=== PATIENT | female | born 1995 | race Caucasian/White ===

== ENCOUNTER 2017-09-29 18:09 | Emergency (ER) | payer SELFPAY ==
[~2017-09-29] VITALS: Ht 154.9 cm; Wt 74.8 kg
[~2017-09-29 18:09] MED LIST: BUPR-126 PO; CHOL10005 PO; FLUO-202 PO; HYDR25CA13 PO; HYDR50CA47 PO; MULT-1379 PO; OMEG-11 PO; ONDA4TAB97 PO; TRAZ-156 PO; TRAZ150T8 PO; [UNRECOGNIZED DRUG - CODE] TP
--- NOTE | 2017-09-29 18:19 | ER Report ---
History and Physical Time Seen By MD: 18:19 Hx. of Stated Complaint: PT REPORTS L ANKLE PAIN SINCE SHE WAS [age] HPI/ROS CHIEF COMPLAINT: Left ankle pain HISTORY OF PRESENT ILLNESS: 22-year-old female patient presents to emergency room with complaint of left ankle pain. Patient states she's been having pain with her ankle for the past 10-11 years. She states that she injured it when she was 11 and didn't think anything of it. She states that she sprained her ankles frequently since then. She states she is seen primarily [facility] and they put her in physical therapy. She states that that seemed to help for a little bit but has not resolved. She denies having any numbness or tingling to her toes. She states that she rolled her ankle twice today. She states that when she does rolled her ankle that rolls inward. She states she has pain along the medial aspect of the left ankle. REVIEW OF SYSTEMS: Respiratory: No cough, no dyspnea. Cardiovascular: No chest pain, no palpitations. Gastrointestinal: No vomiting, no abdominal pain. Musculoskeletal: As noted above Allergies: Coded Allergies: nickel (Verified Allergy, Mild, RASH, 09/29/17) Uncoded Allergies: seafood (Allergy, Mild, AIRWAY OBSTRUCTION, 02/12/17) Home Meds Reported Medications Hydroxyzine Pamoate (HYDROXYZINE PAMOATE) 25 Mg Capsule, 25 MG PO BID Y for ANXIETY, CAPSULE TAKE ONE TABLET (25 MG) UP TO TWICE A DAY NEEDED FOR ANXIETY 08/07/17 Multivits,Th W-Fe,Other Min (THERA-M) 1 Each Tablet, 1 EACH PO QDAY 08/07/17 Fluoxetine Hcl (PROZAC) 20 Mg Capsule, 20 MG PO QAM, CAPSULE 08/07/17 Trazodone Hcl (TRAZODONE HCL) 50 Mg Tablet, 25-50 MG PO QHS Y for INSOMNIA TAKE ONE HALF TO ONE TABLET (25 - 50 MG) ABOUT AN HOUR BEFORE YOU PLAN TO GO TO SLEEP NEEDED FOR INSOMNIA. 02/21/17 Bupropion Hcl (WELLBUTRIN SR) 150 Mg Tablet.er, 150 MG PO QAM, TAB 02/12/17 Past Medical/Surgical History Patient has a past medical history of migraines, social drugs, depression, anxiety, suicide attempt. Patient has surgical history of was some teeth removal. Reviewed Nurses Notes: Yes Hx Smoking: No Smoking Status: Never Smoker Exposure to Second Hand Smoke?: No Hx Substance Use Disorder: Yes (Tride social drugs once ) Hx Alcohol Use: No Constitutional Vital Sign - Last 24 Hours 09/29/17 09/29/17 18:14 19:26 Temp 97.8 Pulse 113 85 Resp 16 16 B/P (MAP) 128/88 128/88 (101) Pulse Ox 96 95 O2 Delivery Room Air Room Air Physical Exam General Appearance: The patient is alert, has no immediate need for airway protection and no current signs of toxicity. ENT: Tympanic membranes are pearly-hancock, auditory canals are patent, mucus mucous membranes are moist. Respiratory: Chest is non tender, lungs are clear to auscultation. Cardiac: regular rate and rhythm Gastrointestinal: Abdomen is soft and non tender, no masses, bowel sounds normal. Musculoskeletal: Neck: Neck is supple and non tender. Extremities have full range of motion and are non tender. Patient has tenderness to the medial aspect of the left ankle, patient has good flexion and extension. Skin: No rashes or lesions. DIFFERENTIAL DIAGNOSIS: After history and physical exam differential diagnosis was considered for left ankle sprain, fracture, strain. Medical Decision Making EKG/Imaging Imaging INDICATION: left ankle pain. DATE: 09/29/2017 6:57 PM. TECHNIQUE: ANKLE 3 VIEW MIN LEFT COMPARISON: None FINDINGS: The ossicle at the dorsal margin of the navicular appears well corticated but may reflect an old injury. Alignment is normal mortise. Mild soft tissue swelling over the lateral malleolus. IMPRESSION: No evidence of acute fracture or dislocation Report Dictated By: Amy Rhodes MD at 09/29/2017 6:57 PM Report E-Signed By: Amy Rhodes MD at 09/29/2017 7:00 PM ED Course/Re-evaluation ED Course Patient was admitted to exam room, history and physical were obtained. Differential diagnoses were considered. On examination there is no obvious swelling or bruising to the ankle. Patient had some tenderness to the medial aspect of the ankle. There was done which was negative. I discussed findings with patient. Patient was very concerned about being placed in a brace was not going to be supportive enough. We will go ahead and place her in a walking boot. She states she has a appointment to follow-up with orthopedics, Dr. Gayle in [place], on September. I will have her wear that until she sees Dr. Gayle. I informed her that she needs to wear that whenever she is up moving around. She may take it off when she is laying down and otherwise needs to have it on. She is to ice her ankle. She is to take Tylenol or ibuprofen as if her pain. Patient verbalized understanding and agreement with plan. Decision to Disposition Date: Sep 29, 2017 Decision to Disposition Time: 19:14 Depart Departure Latest Vital Signs Vital Signs Date Time Temp Pulse Resp B/P (MAP) Pulse Ox O2 Delivery O2 Flow Rate FiO2 09/29/17 19:26 85 16 128/88 (101) 95 Room Air 09/29/17 18:14 97.8 Impression: Primary Impression: SPRAIN OF UNSPECIFIED LIGAMENT OF LEFT ANKLE, INIT ENCNTR Condition: Improved Disposition: HOME OR SELF-CARE Patient Instructions: Ankle Sprain (ED) Additional Instructions: Wear the boot whenever you are up moving. Ice the ankle 2-3 times a day for 10-15 minutes. Get plenty of rest. Take Tylenol or Ibuprofen as needed for pain. Follow up with Dr. Gayle in [place] as we discussed to get further evaluation and decide if surgery is needed. Return to the ER if condition worsens. LAMONT DEL ROSARIO Sep 29, 2017 18:19
--- NOTE | 2017-09-29 19:04 | RADIOLOGY IMAGING REPORT ---
FACILITY: [facility] PATIENT NAME: Letty Valdez : 1995 MR: [id number] V: [id number] EXAM DATE: ORDERING PHYSICIAN: LAMONT DEL ROSARIO TECHNOLOGIST: Location: [facility] [place] Patient: Letty Valdez : 1995 Visit/Account:[id number] Date of Sevice: 09/29/2017 INDICATION: left ankle pain. DATE: 09/29/2017 6:57 PM. TECHNIQUE: ANKLE 3 VIEW MIN LEFT COMPARISON: None FINDINGS: The ossicle at the dorsal margin of the navicular appears well corticated but may reflect a n old injury. Alignment is normal mortise. Mild soft tissue swelling over the lateral malleolus. IMPRESSION: No evidence of acute fracture or dislocation Report Dictated By: Amy Rhodes MD at 09/29/2017 6:57 PM Report E-Signed By: Amy Rhodes MD at 09/29/2017 7:00 PM WSN:[id number]
[2017-09-29 19:26] VITALS: BP 128/88
== END 2017-09-29 19:27 | disposition home or self-care (01) ==
LOC: ER 18:35
DX: S93.402A Sprain of unspecified ligament of left ankle, initial encounter (principal)
CPT/HCPCS: 99284

== ENCOUNTER 2018-03-05 18:54 | Emergency (ER) | payer SELFPAY ==
[~2018-03-05 18:54] MED LIST changes: -TRAZ-156 PO; +TRAZ50TA34 PO
--- NOTE | 2018-03-05 18:57 | ER Report ---
History and Physical Time Seen By MD: 18:56 HPI/ROS CHIEF COMPLAINT: Diffuse abdominal pain, bilateral flank pain for 4 days HISTORY OF PRESENT ILLNESS: Patient is a 22-year-old female here with complaints of the above as well as nausea, vomiting. Pain is located in all quadrants as well as bilateral back flanks. Patient has been tolerating food passing bowel movements however she complains of some dysuria/burning with urination. Patient is afebrile, hemodynamically stable at time of evaluation. She does complain of mild headache however denies chest pain, shortness of breath, hematuria, melena. Patient denies prior history of abdominal procedures. Patient notes that she could be but is uncertain. Denies prior history of nephrolithiasis. She also describes a transient visual disturbance which as since passed which involved the left eye and a seeming hemianopsia from what she was able to describe. No symptoms were present at time of evaluation. I advised the patient to also follow up with neurology OP for further evaluation of a possible underlying neurologic condition. REVIEW OF SYSTEMS: Constitutional: No fever, no chills. Eyes: No discharge ENT: No sore throat. Cardiovascular: No chest pain, no palpitations. Respiratory: No cough, no shortness of breath. Gastrointestinal: + Diffuse abdominal pain, + nausea with vomiting. Genitourinary: No hematuria, + dysuria Musculoskeletal: + b/l back pain. Skin: No rashes. Neurological: + mild headache. Allergies: Coded Allergies: nickel (Verified Allergy, Mild, RASH, 09/29/17) Uncoded Allergies: seafood (Allergy, Mild, AIRWAY OBSTRUCTION, 02/12/17) Home Meds Active Scripts Ondansetron (ZOFRAN ODT) 4 Mg Tab.rapdis, 4 MG PO Q6H Y for NAUSEA/VOMITING, # 20 TAB.DEREJE 0 Refills Prov:LEOPOLDO BENJAMIN DO 03/05/18 Tramadol Hcl (TRAMADOL HCL) 50 Mg Tablet, 50 MG PO Q6H Y for PAIN, #12 TAB 0 Refills Prov:LEOPOLDO BENJAMIN DO 03/05/18 Nitrofurantoin Macrocrystal (NITROFURANTOIN) 100 Mg Capsule, 100 MG PO BID for 5 Days, #10 CAPSULE Prov:LEOPOLDO BENJAMIN DO 03/05/18 Reported Medications Bupropion Hcl (WELLBUTRIN SR) 150 Mg Tablet.er, 150 MG PO BID, TAB 03/05/18 Hydroxyzine Pamoate (HYDROXYZINE PAMOATE) 25 Mg Capsule, 25 MG PO BID Y for ANXIETY, CAPSULE TAKE ONE TABLET (25 MG) UP TO TWICE A DAY NEEDED FOR ANXIETY 08/07/17 Multivits,Th W-Fe,Other Min (THERA-M) 1 Each Tablet, 1 EACH PO QDAY 08/07/17 Trazodone Hcl (TRAZODONE HCL) 50 Mg Tablet, 25-50 MG PO QHS Y for INSOMNIA TAKE ONE HALF TO ONE TABLET (25 - 50 MG) ABOUT AN HOUR BEFORE YOU PLAN TO GO TO SLEEP NEEDED FOR INSOMNIA. 02/21/17 Discontinued Reported Medications Fluoxetine Hcl (PROZAC) 20 Mg Capsule, 20 MG PO QAM, CAPSULE 08/07/17 Bupropion Hcl (WELLBUTRIN SR) 150 Mg Tablet.er, 150 MG PO QAM, TAB 02/12/17 Hx Smoking: No Smoking Status: Never Smoker Exposure to Second Hand Smoke?: No Hx Substance Use Disorder: Yes (Tride social drugs once ) Hx Alcohol Use: No Constitutional Vital Sign - Last 24 Hours 03/05/18 03/05/18 03/05/18 03/05/18 18:59 19:01 19:09 19:24 Temp 99.1 Pulse 126 105 103 Resp 18 B/P (MAP) 130/95 (107) Pulse Ox 95 97 95 O2 Delivery Room Air 03/05/18 03/05/18 03/05/18 03/05/18 19:30 19:39 20:00 20:04 B/P (MAP) 122/85 (97) 120/81 (94) Pulse Ox 90 92 Physical Exam General Appearance: The patient is alert, has no immediate need for airway protection and no signs of toxicity. + mild distress secondary to pain Eyes: Pupils equal and round no pallor or injection. ENT, Mouth: Mucous membranes are moist. Respiratory: There are no retractions, lungs are clear to auscultation. Cardiovascular: Regular rate and rhythm. Gastrointestinal: Abdomen is soft and + diffusely tender w/ b/l flank pain, no masses, bowel sounds normal. Neurological: No focal deficits Skin: Warm and dry, no rashes. Musculoskeletal: Neck is supple non tender. Extremities are nontender, nonswollen and have full range of motion. DIFFERENTIAL DIAGNOSIS: After history and physical exam differential diagnosis was considered for abdominal pain including but not limited to appendicitis, cholecystitis, gastritis and urinary tract infection. Medical Decision Making Data Points Result Diagram: 03/05/18193703/05/181937 Laboratory Hematology Test 03/05/18 18:59 03/05/18 19:38 Urine Color Yellow Urine Clarity Cloudy Urine pH 5.0 pH (4.8-9.5) Urine Specific [place] 1.021 Urine Protein Negative mg/dL (NEGATIVE) Urine Glucose (UA) Negative mg/dL (NEGATIVE) Urine Ketones Negative mg/dL (NEGATIVE) Urine Blood Negative (NEGATIVE) Urine Nitrite Negative (NEGATIVE) Urine Bilirubin Negative (NEGATIVE) Urine Urobilinogen 2.0 mg/dL (0.2-1.9) Urine Leukocyte Esterase Small (NEGATIVE) Urine RBC 1 /HPF (0-2/HPF) Urine WBC 11 /HPF (0-5/HPF) Urine Squamous Epithelial Cells Many /LPF (</=FEW) Urine Bacteria Few /HPF (NONE-FEW) Urine Mucus Few /HPF (NONE-FEW) Urine HCG, Qualitative Negative (NEGATIVE) Red Blood Count 4.53 M/uL (4.17-5.56) Mean Corpuscular Volume 90.7 fL (80.0-96.0) Mean Corpuscular Hemoglobin 31.6 pg (26.0-33.0) Mean Corpuscular Hemoglobin Concent 34.8 g/dL (32.0-36.0) Red Cell Distribution Width 14.9 % (11.5-14.5) Mean Platelet Volume 8.4 fL (7.2-11.1) Neutrophils (%) (Auto) 59.4 % (39.4-72.5) Lymphocytes (%) (Auto) 31.1 % (17.6-49.6) Monocytes (%) (Auto) 8.5 % (4.1-12.4) Eosinophils (%) (Auto) 0.3 % (0.4-6.7) Basophils (%) (Auto) 0.7 % (0.3-1.4) Nucleated RBC Relative Count (auto) 0.0 /100WBC Neutrophils # (Auto) 4.8 K/uL (2.0-7.4) Lymphocytes # (Auto) 2.5 K/uL (1.3-3.6) Monocytes # (Auto) 0.7 K/uL (0.3-1.0) Eosinophils # (Auto) 0.0 K/uL (0.0-0.5) Basophils # (Auto) 0.1 K/uL (0.0-0.1) Nucleated RBC Absolute Count (auto) 0.00 K/uL Sodium Level 141 mmol/L (137-145) Potassium Level 3.7 mmol/L (3.5-5.0) Chloride Level 105 mmol/L (98-107) Carbon Dioxide Level 25 mmol/L (22-31) Blood Urea Nitrogen 13 mg/dl (7-18) Creatinine 0.70 mg/dl (0.52-1.04) Glomerular Filtration Rate Calc > 60.0 Random Glucose 108 mg/dl (75-110) Lactate 1.1 mmol/L (0.7-2.1) Calcium Level 8.9 mg/dl (8.4-10.2) Total Bilirubin 0.4 mg/dl (0.2-1.3) Aspartate Amino Transf (AST/SGOT) 17 U/L (0-35) Alanine Aminotransferase (ALT/SGPT) 20 U/L (0-56) Alkaline Phosphatase 117 U/L (0-126) Total Protein 6.6 g/dl (6.3-8.2) Albumin 3.8 g/dl (3.5-5.0) Lipase 67 U/L (23-300) Chemistry Test 03/05/18 18:59 03/05/18 19:38 Urine Color Yellow Urine Clarity Cloudy Urine pH 5.0 pH (4.8-9.5) Urine Specific [place] 1.021 Urine Protein Negative mg/dL (NEGATIVE) Urine Glucose (UA) Negative mg/dL (NEGATIVE) Urine Ketones Negative mg/dL (NEGATIVE) Urine Blood Negative (NEGATIVE) Urine Nitrite Negative (NEGATIVE) Urine Bilirubin Negative (NEGATIVE) Urine Urobilinogen 2.0 mg/dL (0.2-1.9) Urine Leukocyte Esterase Small (NEGATIVE) Urine RBC 1 /HPF (0-2/HPF) Urine WBC 11 /HPF (0-5/HPF) Urine Squamous Epithelial Cells Many /LPF (</=FEW) Urine Bacteria Few /HPF (NONE-FEW) Urine Mucus Few /HPF (NONE-FEW) Urine HCG, Qualitative Negative (NEGATIVE) White Blood Count 8.0 k/uL (4.5-11.0) Red Blood Count 4.53 M/uL (4.17-5.56) Hemoglobin 14.3 g/dL (12.0-16.0) Hematocrit 41.1 % (34.0-47.0) Mean Corpuscular Volume 90.7 fL (80.0-96.0) Mean Corpuscular Hemoglobin 31.6 pg (26.0-33.0) Mean Corpuscular Hemoglobin Concent 34.8 g/dL (32.0-36.0) Red Cell Distribution Width 14.9 % (11.5-14.5) Platelet Count 286 K/uL (150-450) Mean Platelet Volume 8.4 fL (7.2-11.1) Neutrophils (%) (Auto) 59.4 % (39.4-72.5) Lymphocytes (%) (Auto) 31.1 % (17.6-49.6) Monocytes (%) (Auto) 8.5 % (4.1-12.4) Eosinophils (%) (Auto) 0.3 % (0.4-6.7) Basophils (%) (Auto) 0.7 % (0.3-1.4) Nucleated RBC Relative Count (auto) 0.0 /100WBC Neutrophils # (Auto) 4.8 K/uL (2.0-7.4) Lymphocytes # (Auto) 2.5 K/uL (1.3-3.6) Monocytes # (Auto) 0.7 K/uL (0.3-1.0) Eosinophils # (Auto) 0.0 K/uL (0.0-0.5) Basophils # (Auto) 0.1 K/uL (0.0-0.1) Nucleated RBC Absolute Count (auto) 0.00 K/uL Glomerular Filtration Rate Calc > 60.0 Lactate 1.1 mmol/L (0.7-2.1) Calcium Level 8.9 mg/dl (8.4-10.2) Total Bilirubin 0.4 mg/dl (0.2-1.3) Aspartate Amino Transf (AST/SGOT) 17 U/L (0-35) Alanine Aminotransferase (ALT/SGPT) 20 U/L (0-56) Alkaline Phosphatase 117 U/L (0-126) Total Protein 6.6 g/dl (6.3-8.2) Albumin 3.8 g/dl (3.5-5.0) Lipase 67 U/L (23-300) Urinalysis Test 03/05/18 18:59 Urine Color Yellow Urine Clarity Cloudy Urine pH 5.0 pH (4.8-9.5) Urine Specific [place] 1.021 Urine Protein Negative mg/dL (NEGATIVE) Urine Glucose (UA) Negative mg/dL (NEGATIVE) Urine Ketones Negative mg/dL (NEGATIVE) Urine Blood Negative (NEGATIVE) Urine Nitrite Negative (NEGATIVE) Urine Bilirubin Negative (NEGATIVE) Urine Urobilinogen 2.0 mg/dL (0.2-1.9) Urine Leukocyte Esterase Small (NEGATIVE) Urine RBC 1 /HPF (0-2/HPF) Urine WBC 11 /HPF (0-5/HPF) Urine Squamous Epithelial Cells Many /LPF (</=FEW) Urine Bacteria Few /HPF (NONE-FEW) Urine Mucus Few /HPF (NONE-FEW) Urine HCG, Qualitative Negative (NEGATIVE) EKG/Imaging Imaging 2 VIEWS CHEST INDICATION: Upper abdominal pain. Back pain. COMPARISON: None available FINDINGS: Cardiomediastinal silhouette and pulmonary vessels within normal limits. There is no focal infiltrate or lobar consolidation. There is no pneumothorax or pleural effusion. No nodule. Upper abdomen is unremarkable. No acute bony abnormality. IMPRESSION: 1. No acute cardiopulmonary process. EXAMINATION: CT abdomen with IV contrast CT pelvis with IV contrast HISTORY: Diffuse abdominal pain, nausea/vomiting. COMPARISON: None. TECHNIQUE: Axial images were taken through the abdomen and pelvis with intravenous contrast. Sagittal and coronal reformatted images are also submitted. CONTRAST: 75 mL of IV Isovue-370 One of the following dose optimization techniques was utilized in the performance of this exam: Automated exposure control; adjustment of the mA and/ or kV according to the patient's size; or use of an iterative reconstruction technique. Specific details can be referenced in the facility's radiology CT exam operational policy. FINDINGS: Mild respiratory motion artifact. Liver/biliary: Negative. Pancreas: Negative. Spleen: Negative. Adrenal glands: Negative. Kidneys: Negative. Pelvic structures: Involuting follicle in the right ovary. Bowel: Bowel is normal caliber without obvious focal wall thickening. The appendix is normal. Peritoneum/retroperitoneum/mesenteries: Small volume of free fluid in the pelvis and right lower quadrant of the abdomen. No intraperitoneal free air. Vessels: Negative. Musculoskeletal/body wall: Negative. Lymph node assessment: Negative. Lower chest: Negative. IMPRESSION: Images are mildly degraded by motion artifact. Involuting follicle in the right ovary and small volume of free fluid in the pelvis and right lower quadrant of the abdomen. ED Course/Re-evaluation ED Course Patient is a 22-year-old female here with complaints of diffuse abdominal pain, bilateral flank pain for the past 4 days which is been intermittent, cramping, sore feeling. She also complains of mild burning with urination. Patient denies prior history of abdominal surgeries or nephrolithiasis. She now has nausea and vomiting which prompted evaluation. On examination, the pain and discomfort seems to be in all abdominal quadrants as well as bilateral flanks. CT examination of the abdomen and pelvis was ordered along with chest x-ray due to symptoms. Urine is negative. Chest x ray showed no acute findings. CTAP showed no acute intra abdominal findings. B HCG negative. UA showed small esterase. Due to symptoms of burning with urination, patient was prescribed antibiotics. She was also given scripts for zofran, tramadol and advised to follow up with her PCP in the next several days. She also describes a transient visual disturbance which as since passed which involved the left eye and a seeming hemianopsia from what she was able to describe. No symptoms were present at time of evaluation. I advised the patient to also follow up with neurology OP for further evaluation of a possible underlying neurologic condition such as MS. Ceftriaxone was given for antimicrobial coverage along with macrobid x 5 days, tramadol and zofran. Patient was well appearing at time of discharge. Decision to Disposition Date: Mar 05, 2018 Decision to Disposition Time: 20:44 Depart Departure Latest Vital Signs Vital Signs Date Time Temp Pulse Resp B/P (MAP) Pulse Ox O2 Delivery O2 Flow Rate FiO2 03/05/18 20:04 92 03/05/18 20:00 120/81 (94) 03/05/18 19:24 103 03/05/18 18:59 99.1 18 Room Air Impression: Primary Impression: Abdominal pain Additional Impressions: Nausea & vomiting UTI (urinary tract infection) Condition: Improved Disposition: HOME OR SELF-CARE New Scripts Ondansetron (ZOFRAN ODT) 4 Mg Tab.rapdis 4 MG PO Q6H Y for NAUSEA/VOMITING, #20 TAB.DEREJE 0 Refills Prov: LEOPOLDO BENJAMIN DO 03/05/18 Tramadol Hcl (TRAMADOL HCL) 50 Mg Tablet 50 MG PO Q6H Y for PAIN, #12 TAB 0 Refills Prov: LEOPOLDO BENJAMIN DO 03/05/18 Nitrofurantoin Macrocrystal (NITROFURANTOIN) 100 Mg Capsule 100 MG PO BID for 5 Days, #10 CAPSULE Prov: LEOPOLDO BENJAMIN DO 03/05/18 Patient Instructions: Abdominal Pain (ED), Urinary Tract Infection in Women (ED ) Additional Instructions: Please take one tablet of Macrobid twice daily for coverage of urinary tract infection. You may take 1 tablet of tramadol every 6-8 hours as needed for pain. You may take 1 tablet of Zofran every 6 hours as needed for nausea. Please follow up with your family doctor in the next several days. Please follow up with neurology for further evaluation of your vision disturbance. Please return promptly if you develop worsening pain, fevers, chills, shortness of breath. Problem Qualifiers LEOPOLDO BENJAMIN DO Mar 05, 2018 18:57
[2018-03-05] MEDS ORDERED: ONDANSETRON 4 MG/2 ML VIAL IVP ONE (19:15)
[2018-03-05] MEDS ORDERED: KETOROLAC 30 MG/ML VIAL IVP ONE (19:15)
[2018-03-05] MEDS ORDERED: NS(*) 0.9% 1000 ML BAG 1,000 ML IV ONE (19:15)
[2018-03-05] MEDS ORDERED: IOPAMIDOL 76% 100 ML INFUS BTL 100 ML ONE (19:30)
[2018-03-05 19:54] LABS: PLATELET COUNT, AUTOMATED 286 K/uL (150-450)
--- NOTE | 2018-03-05 19:57 | RADIOLOGY IMAGING REPORT ---
FACILITY: [facility] [place] PATIENT NAME: Letty Valdez : 1995 MR: [id number] V: [id number] EXAM DATE: ORDERING PHYSICIAN: LEOPOLDO BENJAMIN TECHNOLOGIST: Location: [facility] Patient: Letty Valdez : 1995 Visit/Account:[id number] Date of Sevice: 03/05/2018 2 VIEWS CHEST INDICATION: Upper abdominal pain. Back pain. COMPARISON: None available FINDINGS: Cardiomediastinal silhouette and pulmonary vessels within normal limits. There is no focal infiltrate or lobar consolidation. There is no pneumothorax or pleural effusion. No nodule. Upper abdomen is unremarkable. No acute bony abnormality. IMPRESSION: 1. No acute cardiopulmonary process. Report Dictated By: Patrick Gallegos at 03/05/2018 7:53 PM Report E-Signed By: Patrick Gallegos at 03/05/2018 7:54 PM WSN:[id number]
[2018-03-05 20:00] VITALS: BP 120/81
[2018-03-05] MEDS ORDERED: BUPR-126 PO (20:07)
--- NOTE | 2018-03-05 20:32 | RADIOLOGY IMAGING REPORT ---
FACILITY: PATIENT NAME: Letty Valdez : 1995 MR: [id number] V: [id number] EXAM DATE: ORDERING PHYSICIAN: LEOPOLDO BENJAMIN TECHNOLOGIST: Location: [facility] [place] Patient: Letty Valdez : 1995 Visit/Account:[id number] Date of Sevice: 03/05/2018 EXAMINATION: CT abdomen with IV contrast CT pelvis with IV contrast HISTORY: Diffuse abdominal pain, nausea/vomiting. COMPARISON: None. TECHNIQUE: Axial images were taken through the abdomen and pelvis with intravenous contrast. Sagitt al and coronal reformatted images are also submitted. CONTRAST: 75 mL of IV Isovue-370 One of the following dose optimization techniques was utilized in the performance of this exam: Autom ated exposure control; adjustment of the mA and/or kV according to the patient's size; or use of an i terative reconstruction technique. Specific details can be referenced in the facility's radiology C T exam operational policy. FINDINGS: Mild respiratory motion artifact. Liver/biliary: Negative. Pancreas: Negative. Spleen: Negative. Adrenal glands: Negative. Kidneys: Negative. Pelvic structures: Involuting follicle in the right ovary. Bowel: Bowel is normal caliber without obvious focal wall thickening. The appendix is normal. Peritoneum/retroperitoneum/mesenteries: Small volume of free fluid in the pelvis and right lower quad rant of the abdomen. No intraperitoneal free air. Vessels: Negative. Musculoskeletal/body wall: Negative. Lymph node assessment: Negative. Lower chest: Negative. IMPRESSION: Images are mildly degraded by motion artifact. Involuting follicle in the right ovary and small volume of free fluid in the pelvis and right lower q uadrant of the abdomen. Report Dictated By: Michael Romo MD at 03/05/2018 8:17 PM Report E-Signed By: Michael Romo MD at 03/05/2018 8:28 PM WSN:[id number]
[2018-03-05] MEDS ORDERED: NITR-1 PO (20:47)
[2018-03-05] MEDS ORDERED: TRAM-420 PO (20:47)
[2018-03-05] MEDS ORDERED: ONDA4TAB PO (20:47)
[2018-03-05] MEDS ORDERED: cefTRIAXone 1 GM VIAL IM ONE (20:50)
[2018-03-05] MEDS ORDERED: LIDOCAINE 1% MDV 200 MG/20 ML INJ ONE (20:50)
[2018-03-05] MEDS ORDERED: cefTRIAXone 1 GM VIAL IVP ONE (20:55)
== END 2018-03-05 21:11 | disposition home or self-care (01) ==
LOC: ER 19:15
DX: N39.0 Urinary tract infection, site not specified (principal); R11.2 Nausea with vomiting, unspecified; R10.9 Unspecified abdominal pain
CPT/HCPCS: 71046; 74177; 81001; 81025; 83605; 83690; 85025; 87088; 96361; 96374; 96375; 99284; J0696; J1885; J2405; J7030; Q9967; 82040; 82247; 82310; 82374; 82435; 82565; 82947; 84075; 84132; 84155; 84295; 84450; 84460; 84520; 99283

== ENCOUNTER 2018-03-29 03:31 | Emergency (ER) | payer SELFPAY ==
[~2018-03-29 03:31] MED LIST changes: +NITR-1 PO; +ONDA4TAB PO; +TRAM-420 PO
--- NOTE | 2018-03-29 03:55 | ER Report ---
History and Physical Time Seen By MD: 03:54 (BARAK DIAZ MD) HPI/ROS CHIEF COMPLAINT: Left arm numbness, mouth and numbness HISTORY OF PRESENT ILLNESS: Patient is a 22-year-old female who had developed onset of numbness and tingling to the left side of her face and left arm associated with visual changes. She states that when she looks at a person's face he only sees "half of it". This was followed by headache which is severe and right-sided. Patient has no prior history of migraines. There is no history of traumatic injury. Patient was just getting off work at [employer] when the symptoms began. He describes the headache is severe. She reports some associated nausea. No fever or infectious type symptoms. denies any alcohol or drug use. Patient denies any drug use. ROS General: No fevers, no chills Eyes: No redness, no discharge; visual field deficit Ears: No pain, no discharge Nares: No epistaxis, no discharge OP: No dysphagia, no erythema Neck: Supple, without adenopathy CV: No chest pain, no palpitations Pulm: No cough, no congestion, no wheezing Ab: No pain, no nausea, no vomiting, no diarrhea Ext: No muscle pain, no joint pain Neuro: Headache Skin: No rashes, no lesions Psych: No suicidal or homicidal ideations, no depression Endo: No polyuria, no polyphagia no polydipsia (BARAK DIAZ MD) Allergies: Coded Allergies: nickel (Verified Allergy, Mild, RASH, 03/29/18) Uncoded Allergies: seafood (Allergy, Mild, AIRWAY OBSTRUCTION, 02/12/17) Home Meds Active Scripts Tramadol Hcl (TRAMADOL HCL) 50 Mg Tablet, 50 MG PO Q6H Y for PAIN, #12 TAB 0 Refills Prov:LEOPOLDO BENJAMIN S DO 03/05/18 Reported Medications Bupropion Hcl (WELLBUTRIN SR) 150 Mg Tablet.er, 150 MG PO BID, TAB 03/05/18 Hydroxyzine Pamoate (HYDROXYZINE PAMOATE) 25 Mg Capsule, 25 MG PO BID Y for ANXIETY, CAPSULE TAKE ONE TABLET (25 MG) UP TO TWICE A DAY NEEDED FOR ANXIETY 08/07/17 Multivits, W-Fe,Other Min (THERA-M) 1 Each Tablet, 1 EACH PO QDAY 08/07/17 Trazodone Hcl (TRAZODONE HCL) 50 Mg Tablet, 25-50 MG PO QHS Y for INSOMNIA TAKE ONE HALF TO ONE TABLET (25 - 50 MG) ABOUT AN HOUR BEFORE YOU PLAN TO GO TO SLEEP NEEDED FOR INSOMNIA. 02/21/17 Discontinued Scripts Ondansetron (ZOFRAN ODT) 4 Mg Tab.rapdis, 4 MG PO Q6H Y for NAUSEA/VOMITING, # 20 TAB.DEREJE 0 Refills Prov:LEOPOLDO BENJAMIN DO 03/05/18 Nitrofurantoin Macrocrystal (NITROFURANTOIN) 100 Mg Capsule, 100 MG PO BID for 5 Days, #10 CAPSULE Prov:LEOPOLDO BENJAMIN DO 03/05/18 Past Medical/Surgical History Past medical history for anxiety also history of past admission to behavioral health (BARAK DIAZ MD) Hx Smoking: No Smoking Status: Never Smoker Exposure to Second Hand Smoke?: No Hx Substance Use Disorder: Yes ( social drugs once ) Hx Alcohol Use: No (BARAK DIAZ MD) Constitutional Vital Sign - Last 24 Hours 03/29/18 03/29/18 03/29/18 03/29/18 03:36 03:46 03:59 04:01 Temp 97.9 Pulse 96 103 94 Resp 16 B/P (MAP) 135/93 (107) 135/93 Pulse Ox 93 95 95 O2 Delivery Room Air 03/29/18 03/29/18 03/29/18 03/29/18 04:16 04:31 05:16 05:20 Pulse 87 88 88 Resp 10 7 Pulse Ox 94 93 93 93 03/29/18 03/29/18 03/29/18 03/29/18 05:35 05:50 06:05 06:20 Pulse 79 97 109 110 Resp 15 18 33 32 Pulse Ox 90 93 93 94 03/29/18 03/29/18 06:26 06:35 Pulse 101 Resp 12 B/P (MAP) 109/77 (88) Pulse Ox 90 (SRIKANTH JACKSON MD) Physical Exam General/Constitutional: Patient is awake, alert, nontoxic and in no acute respiratory distress. Head: Normocephalic and atraumatic. Eyes: Conjunctival clear, Pupils are equal and reactive to light. Extraocular muscles are intact and symmetrical. Sclera are clear and anicteric. Patient does have a lateral visual field deficit that seems to only affect the left eye with confrontation test. Right eye seems to be normal. Ears:External canals are clear. Tympanic membranes are clear with normal landmarks and light reflex. Nares: No rhinorrhea or bleeding. Turbinates are pink and moist. Oropharyngeal: Mucous membranes are moist. There is no pharyngeal erythema or exudate. There are no palatal petechiae. Uvula is midline and symmetrical. Neck: Supple, no adenopathy. Cardiovascular: Heart is regular rate and rhythm without audible murmurs, rubs or gallops. Pulmonary: Lungs are clear to auscultation bilaterally. There are no wheezes, rales, or rhonchi. Chest rise is symmetrical Abdomen: Soft, nontender, no guarding or peritoneal signs. Extremities: No gross deformities, No peripheral cyanosis. Able to move all 4 extremities. Neuro: Alert and oriented X3, Cranial nerves 2 thru 12 are intact and symmetrical. Patient has normal gait. Skin: No rashes, skin is warm dry and well perfused. (BARAK DIAZ MD) Medical Decision Making Data Points Result Diagram: 03/29/18 0420 03/29/18 0420 Laboratory Hematology Test 03/29/18 04:20 Red Blood Count 4.29 M/uL (4.17-5.56) Mean Corpuscular Volume 91.6 fL (80.0-96.0) Mean Corpuscular Hemoglobin 31.7 pg (26.0-33.0) Mean Corpuscular Hemoglobin Concent 34.6 g/dL (32.0-36.0) Red Cell Distribution Width 14.5 % (11.5-14.5) Mean Platelet Volume 8.5 fL (7.2-11.1) Neutrophils (%) (Auto) 65.4 % (39.4-72.5) Lymphocytes (%) (Auto) 25.4 % (17.6-49.6) Monocytes (%) (Auto) 8.2 % (4.1-12.4) Eosinophils (%) (Auto) 0.5 % (0.4-6.7) Basophils (%) (Auto) 0.5 % (0.3-1.4) Nucleated RBC Relative Count (auto) 0.1 /100WBC Neutrophils # (Auto) 5.9 K/uL (2.0-7.4) Lymphocytes # (Auto) 2.3 K/uL (1.3-3.6) Monocytes # (Auto) 0.7 K/uL (0.3-1.0) Eosinophils # (Auto) 0.0 K/uL (0.0-0.5) Basophils # (Auto) 0.0 K/uL (0.0-0.1) Nucleated RBC Absolute Count (auto) 0.01 K/uL Sodium Level 137 mmol/L (137-145) Potassium Level 3.5 mmol/L (3.5-5.0) Chloride Level 103 mmol/L (98-107) Carbon Dioxide Level 25 mmol/L (22-31) Blood Urea Nitrogen 12 mg/dl (7-18) Creatinine 0.70 mg/dl (0.52-1.04) Glomerular Filtration Rate Calc > 60.0 Random Glucose 100 mg/dl (75-110) Calcium Level 9.0 mg/dl (8.4-10.2) Total Bilirubin 0.3 mg/dl (0.2-1.3) Aspartate Amino Transf (AST/SGOT) 18 U/L (0-35) Alanine Aminotransferase (ALT/SGPT) 20 U/L (0-56) Alkaline Phosphatase 118 U/L (0-126) Total Protein 7.1 g/dl (6.3-8.2) Albumin 4.3 g/dl (3.5-5.0) Human Chorionic Gonadotropin, Qual Negative (NEGATIVE) Chemistry Test 03/29/18 04:20 White Blood Count 9.1 k/uL (4.5-11.0) Red Blood Count 4.29 M/uL (4.17-5.56) Hemoglobin 13.6 g/dL (12.0-16.0) Hematocrit 39.3 % (34.0-47.0) Mean Corpuscular Volume 91.6 fL (80.0-96.0) Mean Corpuscular Hemoglobin 31.7 pg (26.0-33.0) Mean Corpuscular Hemoglobin Concent 34.6 g/dL (32.0-36.0) Red Cell Distribution Width 14.5 % (11.5-14.5) Platelet Count 266 K/uL (150-450) Mean Platelet Volume 8.5 fL (7.2-11.1) Neutrophils (%) (Auto) 65.4 % (39.4-72.5) Lymphocytes (%) (Auto) 25.4 % (17.6-49.6) Monocytes (%) (Auto) 8.2 % (4.1-12.4) Eosinophils (%) (Auto) 0.5 % (0.4-6.7) Basophils (%) (Auto) 0.5 % (0.3-1.4) Nucleated RBC Relative Count (auto) 0.1 /100WBC Neutrophils # (Auto) 5.9 K/uL (2.0-7.4) Lymphocytes # (Auto) 2.3 K/uL (1.3-3.6) Monocytes # (Auto) 0.7 K/uL (0.3-1.0) Eosinophils # (Auto) 0.0 K/uL (0.0-0.5) Basophils # (Auto) 0.0 K/uL (0.0-0.1) Nucleated RBC Absolute Count (auto) 0.01 K/uL Glomerular Filtration Rate Calc > 60.0 Calcium Level 9.0 mg/dl (8.4-10.2) Total Bilirubin 0.3 mg/dl (0.2-1.3) Aspartate Amino Transf (AST/SGOT) 18 U/L (0-35) Alanine Aminotransferase (ALT/SGPT) 20 U/L (0-56) Alkaline Phosphatase 118 U/L (0-126) Total Protein 7.1 g/dl (6.3-8.2) Albumin 4.3 g/dl (3.5-5.0) Human Chorionic Gonadotropin, Qual Negative (NEGATIVE) (SRIKANTH JACKSON MD) EKG/Imaging Imaging FACILITY: [facility] PATIENT NAME: Letty Valdez : 1995 MR: [id number] V: [id number] EXAM DATE: ORDERING PHYSICIAN: BARAK DIAZ TECHNOLOGIST: Location: [facility] Patient: Letty Valdez : 1995 Visit/Account:[id number] Date of Sevice: 03/29/2018 EXAMINATION: HEAD W/O CONTRAST CLINICAL INDICATION: Headache x1 day. COMPARISON: CT head dated February 12, 2017. TECHNIQUE: Contiguous axial CT images of the brain were obtained without IV contrast. Sagittal and coronal reformatted images were also performed. One of the following dose optimization techniques was utilized in the performance of this exam: Automated exposure control; adjustment of the mA and/ or kV according to the patient's size; or use of an iterative reconstruction technique. Specific details can be referenced in the facility's radiology CT exam operational policy. RESULT: BRAIN: The ventricles are symmetric and normal in size. The brain parenchyma appears normal. The hancock-white matter differentiation is preserved and the basilar cisterns are maintained. The cerebellum and brainstem appear normal. There is no mass, acute infarct, hemorrhage or shift of midline. VISUALIZED PARANASAL SINUSES & MASTOIDS: Polyp versus mucus retention cyst within the left maxillary sinus. Otherwise negative. SKULL BASE & CRANIUM: Visualized osseous structures are intact. IMPRESSION: Negative CT of the brain without contrast. Report Dictated By: Zain Ortiz MD at 03/29/2018 5:08 AM Report E-Signed By: Zain Ortiz MD at 03/29/2018 5:10 AM WSN:[id number] (BARAK DIAZ MD) ED Course/Re-evaluation Clinical Indication for ER IV: IV Access ED Course 03/29/2018 4:23:07 am symptoms sound like migraine with aura. Plan will be to perform CT scan of the head along with routine blood work. We'll give IV Toradol , Reglan and Benadryl at this time. Re-evaluation 03/29/2018 5:25:50 am patient still having headache. Plan will be 1 mg of IV Dilaudid. CT scan is unremarkable at this time 03/29/2018 5:55:33 am Patient was given 1 mg of Dilaudid; still no improvement in headache still having visual changes. We'll give 10 mg of Zyprexa IM we'll arrange for a MRI of the brain without contrast. Patient's symptoms and exam point towards migraine with aura. Repeat temperature was done orally at 98.1 Fahrenheit patient has no meningeal signs no fevers and nothing to make me suspect meningitis as a source. CT scan was negative for any acute hemorrhage. Patient does have a history of anxiety as well as depression with suicidal ideation. She is currently not suicidal or depressed that she is admitting to but another possibility would be a psychiatric component such as somatitization as the cause of her symptoms. Decision to Disposition Date: Mar 29, 2018 Decision to Disposition Time: 08:20 (BARAK DIAZ MD) ED Course HERR improved. MRI normal. Likely occular migraine. Decision to Disposition Date: Mar 29, 2018 Decision to Disposition Time: 08:19 (SRIKANTH JACKSON MD) Depart Departure Latest Vital Signs Vital Signs Date Time Temp Pulse Resp B/P (MAP) Pulse Ox O2 Delivery O2 Flow Rate FiO2 03/29/18 06:35 101 12 90 03/29/18 06:26 109/77 (88) 03/29/18 03:59 97.9 Room Air (SRIKANTH JACKSON MD) Impression: Primary Impression: Ocular migraine Condition: Improved Disposition: HOME OR SELF-CARE Patient Instructions: Ocular Migraine (ED) BARAK DIAZ MD Mar 29, 2018 03:55 SRIKANTH JACKSON MD Mar 29, 2018 08:22
[2018-03-29] MEDS ORDERED: NS(*) 0.9% 1000 ML BAG 1,000 ML IV ONE (04:08)
[2018-03-29] MEDS ORDERED: diphenhydrAMINE 50 MG/ML VIAL IVP ONE (04:10)
[2018-03-29] MEDS ORDERED: KETOROLAC 30 MG/ML VIAL IVP ONE (04:10)
[2018-03-29] MEDS ORDERED: METOCLOPRAMIDE 10 MG/2 ML SDV IVP ONE (04:10)
[2018-03-29 04:40] LABS: PLATELET COUNT, AUTOMATED 266 K/uL (150-450)
--- NOTE | 2018-03-29 05:14 | RADIOLOGY IMAGING REPORT ---
FACILITY: [facility] - [place] PATIENT NAME: Letty Valdez : 1995 MR: [id number] V: [id number] EXAM DATE: ORDERING PHYSICIAN: BARAK DIAZ TECHNOLOGIST: Location: [facility] [place] Patient: Letty Valdez : 1995 Visit/Account:[id number] Date of Sevice: 03/29/2018 EXAMINATION: HEAD W/O CONTRAST CLINICAL INDICATION: Headache x1 day. COMPARISON: CT head dated February 12, 2017. TECHNIQUE: Contiguous axial CT images of the brain were obtained without IV contrast. Sagittal and co bibi reformatted images were also performed. One of the following dose optimization techniques was utilized in the performance of this exam: Autom ated exposure control; adjustment of the mA and/or kV according to the patient's size; or use of an i terative reconstruction technique. Specific details can be referenced in the facility's radiology C T exam operational policy. RESULT: BRAIN: The ventricles are symmetric and normal in size. The brain parenchyma appears normal. The gra y-white matter differentiation is preserved and the basilar cisterns are maintained. The cerebellum a nd brainstem appear normal. There is no mass, acute infarct, hemorrhage or shift of midline. VISUALIZED PARANASAL SINUSES & MASTOIDS: Polyp versus mucus retention cyst within the left maxillary sinus. Otherwise negative. SKULL BASE & CRANIUM: Visualized osseous structures are intact. IMPRESSION: Negative CT of the brain without contrast. Report Dictated By: Zain Ortiz MD at 03/29/2018 5:08 AM Report E-Signed By: Zain Ortiz MD at 03/29/2018 5:10 AM WSN:[id number]
[2018-03-29] MEDS ORDERED: HYDROMORPHONE HCL 1 MG/ML SYRINGE IVP ONE (05:20)
[2018-03-29] MEDS ORDERED: OLANZapine 10 MG VIAL IM ONLY ONE (05:55)
[2018-03-29] MEDS ORDERED: WATER STERILE 10 ML VIAL IM ONLY ONE (05:55)
--- NOTE | 2018-03-29 07:28 | RADIOLOGY IMAGING REPORT ---
FACILITY: [facility] PATIENT NAME: Letty aVldez : 1995 MR: [id number] V: [id number] EXAM DATE: ORDERING PHYSICIAN: BARAK DIAZ TECHNOLOGIST: Location: [facility] - [place] Patient: Letty Valdez : 1995 Visit/Account:[id number] Date of Sevice: 03/29/2018 Clinical Indication: Headache Comparison: None Technique: Multiplanar and multisequence MRI images of the brain were obtained without IV contrast. Result: DWI and ADC are negative for acute ischemia. The normally visualized major intracranial flow- voids are preserved. There is normal hancock-white matter differentiation. The periventricular white matter is unremarkable. The ventricles and sulci are within normal limits for age. There is no evidence of intra cerebral h emorrhage, intracranial mass, or extraaxial fluid collection. The visualized midline structures including the corpus callosum, pituitary, and brainstem are within normal limits. The visualized bony structures and soft tissues are within normal limits. The visualized orbits are w ithin normal limits. The visualized paranasal demonstrate a mucus retention cyst within the left maxi llary sinus. Otherwise clear. Impression: No acute findings of the brain. Report Dictated By: Zain Ortiz MD at 03/29/2018 7:21 AM Report E-Signed By: Zain Ortiz MD at 03/29/2018 7:24 AM WSN:[id number]
[2018-03-29 08:24] VITALS: BP 112/77
== END 2018-03-29 08:28 | disposition home or self-care (01) ==
LOC: ER 04:27
DX: G43.809 Other migraine, not intractable, without status migrainosus (principal)
CPT/HCPCS: 70450; 70551; 84703; 85025; 92284; 96374; 96375; 99284; J1170; J1200; J1885; J2765; J3490; J7030; 82040; 82247; 82310; 82374; 82435; 82565; 82947; 84075; 84132; 84155; 84295; 84450; 84460; 84520

== ENCOUNTER 2018-04-29 20:12 | Emergency (ER) | payer SELFPAY ==
--- NOTE | 2018-04-29 20:35 | ER Report ---
History and Physical Time Seen By MD: 20:35 Hx. of Stated Complaint: rocio flank pain HPI/ROS CHIEF COMPLAINT: bilateral flank pain HISTORY OF PRESENT ILLNESS: This is a 22 year old female. She has had some right flank pain for the last few days. Started having some left side yesterday. Having dysuria. Having some fevers/chills as well. No cough or shortness of breath. Bowels have been working normally. No chest pains. Nothing makes the pain worse or better. Has not taken any medicines for pain relief. Allergies: Coded Allergies: nickel (Verified Allergy, Mild, RASH, 04/29/18) fish derived (Verified Allergy, Unknown, 04/29/18) throat swelling Uncoded Allergies: seafood (Allergy, Mild, AIRWAY OBSTRUCTION, 02/12/17) Home Meds Active Scripts Hydrocodone Bit/Acetaminophen (HYDROCODON-ACETAMINOPHEN 5-325) 1 Each Tablet, 1 EACH PO Q4H PRN for PAIN, #8 TAB 0 Refills Prov:THOMAS PARRY MD 04/29/18 Ondansetron (ZOFRAN ODT) 4 Mg Tab.rapdis, 4 MG PO Q6H PRN for NAUSEA/VOMITING, #20 TAB.DEREJE 0 Refills Prov:THOMAS PARRY MD 04/29/18 Sulfamethoxazole/Trimet 800-160 Mg Tab (BACTRIM DS TABLET) 1 Each Tablet, 1 TAB PO Q12H, #14 TAB 0 Refills Prov:THOMAS PARRY MD 04/29/18 Reported Medications Bupropion Hcl (WELLBUTRIN SR) 150 Mg Tablet.er, 150 MG PO BID, TAB 03/05/18 Hydroxyzine Pamoate (HYDROXYZINE PAMOATE) 25 Mg Capsule, 25 MG PO BID PRN for ANXIETY, CAPSULE TAKE ONE TABLET (25 MG) UP TO TWICE A DAY NEEDED FOR ANXIETY 08/07/17 Trazodone Hcl (TRAZODONE HCL) 50 Mg Tablet, 25-50 MG PO QHS PRN for INSOMNIA TAKE ONE HALF TO ONE TABLET (25 - 50 MG) ABOUT AN HOUR BEFORE YOU PLAN TO GO TO SLEEP NEEDED FOR INSOMNIA. 02/21/17 Discontinued Reported Medications Multivits,Th W-Fe,Other Min (THERA-M) 1 Each Tablet, 1 EACH PO QDAY 08/07/17 Discontinued Scripts Tramadol Hcl (TRAMADOL HCL) 50 Mg Tablet, 50 MG PO Q6H PRN for PAIN, #12 TAB 0 Refills Prov:LEOPOLDO BENJAMIN DO 03/05/18 Reviewed Nurses Notes: Yes Hx Smoking: No Smoking Status: Never Smoker Exposure to Second Hand Smoke?: No Hx Substance Use Disorder: No Hx Alcohol Use: No Constitutional Vital Sign - Last 24 Hours 04/29/18 04/29/18 04/29/18 04/29/18 20:12 20:16 20:18 20:30 Temp 98.5 Pulse 117 117 Resp 17 B/P (MAP) 125/86 (99) 125/86 129/77 (94) Pulse Ox 98 98 O2 Delivery Room Air Room Air 04/29/18 04/29/18 04/29/18 04/29/18 20:42 21:00 21:12 21:17 Pulse 109 103 96 B/P (MAP) 122/69 (86) Pulse Ox 99 97 99 O2 Delivery Room Air Room Air Room Air 04/29/18 04/29/18 04/29/18 04/29/18 21:47 21:48 22:00 22:08 Pulse 96 121 B/P (MAP) 121/72 (88) 157/134 (142) Pulse Ox 93 97 O2 Delivery Room Air 04/29/18 04/29/18 04/29/18 04/29/18 22:23 22:30 22:38 22:53 Pulse 98 101 93 B/P (MAP) 112/73 (86) Pulse Ox 94 92 94 Physical Exam General Appearance: The patient is alert. No acute distress. Eyes: Pupils are equal, round. No pallor, injection or icterus. ENT: Mucous membranes are moist. Normal oral mucosa. Posterior oropharynx is normal. Neck: Supple and non tender. Respiratory: Lungs are clear to auscultation. Cardiovascular: Regular rate and rhythm. No murmurs, gallops or rubs. Normal capillary refill. Gastrointestinal: Abdomen is soft and non tender. Nondistended. Normal active bowel sounds. Has bilateral CVA tenderness. Neurological: Alert and oriented x3. Skin: Warm and dry. No rashes. Musculoskeletal: No tenderness in palpation of the cervical, thoracic and lumbar spine. DIFFERENTIAL DIAGNOSIS: After history and physical exam, differential diagnosis was considered for flank pain including but not limited to musculoskeletal causes, infection, and intra-abdominal causes such as diverticulitis and appendicitis. Medical Decision Making Data Points Result Diagram: 04/29/18205204/29/182052 Laboratory Hematology Test 04/29/18 20:53 04/29/18 21:28 Red Blood Count 5.00 M/uL (4.17-5.56) Mean Corpuscular Volume 90.5 fL (80.0-96.0) Mean Corpuscular Hemoglobin 31.1 pg (26.0-33.0) Mean Corpuscular Hemoglobin Concent 34.4 g/dL (32.0-36.0) Red Cell Distribution Width 14.1 % (11.5-14.5) Mean Platelet Volume 8.4 fL (7.2-11.1) Neutrophils (%) (Auto) 60.0 % (39.4-72.5) Lymphocytes (%) (Auto) 31.5 % (17.6-49.6) Monocytes (%) (Auto) 7.5 % (4.1-12.4) Eosinophils (%) (Auto) 0.5 % (0.4-6.7) Basophils (%) (Auto) 0.5 % (0.3-1.4) Nucleated RBC Relative Count (auto) 0.1 /100WBC Neutrophils # (Auto) 6.1 K/uL (2.0-7.4) Lymphocytes # (Auto) 3.2 K/uL (1.3-3.6) Monocytes # (Auto) 0.8 K/uL (0.3-1.0) Eosinophils # (Auto) 0.1 K/uL (0.0-0.5) Basophils # (Auto) 0.0 K/uL (0.0-0.1) Nucleated RBC Absolute Count (auto) 0.01 K/uL Erythrocyte Sedimentation Rate 21 mm/HOUR (0-20) Sodium Level 141 mmol/L (137-145) Potassium Level 3.3 mmol/L (3.5-5.0) Chloride Level 103 mmol/L (98-107) Carbon Dioxide Level 26 mmol/L (22-31) Blood Urea Nitrogen 16 mg/dl (7-18) Creatinine 0.80 mg/dl (0.52-1.04) Glomerular Filtration Rate Calc > 60.0 Random Glucose 104 mg/dl (75-110) Calcium Level 9.1 mg/dl (8.4-10.2) Total Bilirubin 0.4 mg/dl (0.2-1.3) Aspartate Amino Transf (AST/SGOT) 19 U/L (0-35) Alanine Aminotransferase (ALT/SGPT) 25 U/L (0-56) Alkaline Phosphatase 106 U/L (0-126) C-Reactive Protein 0.6 mg/dl (<1.0) Total Protein 7.7 g/dl (6.3-8.2) Albumin 4.4 g/dl (3.5-5.0) Human Chorionic Gonadotropin, Qual Negative (NEGATIVE) Urine Color Yellow Urine Clarity Cloudy Urine pH 6.0 pH (4.8-9.5) Urine Specific [place] 1.027 Urine Protein Negative mg/dL (NEGATIVE) Urine Glucose (UA) Negative mg/dL (NEGATIVE) Urine Ketones Negative mg/dL (NEGATIVE) Urine Blood Negative (NEGATIVE) Urine Nitrite Negative (NEGATIVE) Urine Bilirubin Negative (NEGATIVE) Urine Urobilinogen 4.0 mg/dL (0.2-1.9) Urine Leukocyte Esterase Moderate (NEGATIVE) Urine RBC 4 /HPF (0-2/HPF) Urine WBC 2 /HPF (0-5/HPF) Urine Squamous Epithelial Cells Many /LPF (</=FEW) Urine Bacteria Negative /HPF (NONE-FEW) Urine Mucus Few /HPF (NONE-FEW) Chemistry Test 04/29/18 20:53 04/29/18 21:28 White Blood Count 10.2 k/uL (4.5-11.0) Red Blood Count 5.00 M/uL (4.17-5.56) Hemoglobin 15.5 g/dL (12.0-16.0) Hematocrit 45.2 % (34.0-47.0) Mean Corpuscular Volume 90.5 fL (80.0-96.0) Mean Corpuscular Hemoglobin 31.1 pg (26.0-33.0) Mean Corpuscular Hemoglobin Concent 34.4 g/dL (32.0-36.0) Red Cell Distribution Width 14.1 % (11.5-14.5) Platelet Count 312 K/uL (150-450) Mean Platelet Volume 8.4 fL (7.2-11.1) Neutrophils (%) (Auto) 60.0 % (39.4-72.5) Lymphocytes (%) (Auto) 31.5 % (17.6-49.6) Monocytes (%) (Auto) 7.5 % (4.1-12.4) Eosinophils (%) (Auto) 0.5 % (0.4-6.7) Basophils (%) (Auto) 0.5 % (0.3-1.4) Nucleated RBC Relative Count (auto) 0.1 /100WBC Neutrophils # (Auto) 6.1 K/uL (2.0-7.4) Lymphocytes # (Auto) 3.2 K/uL (1.3-3.6) Monocytes # (Auto) 0.8 K/uL (0.3-1.0) Eosinophils # (Auto) 0.1 K/uL (0.0-0.5) Basophils # (Auto) 0.0 K/uL (0.0-0.1) Nucleated RBC Absolute Count (auto) 0.01 K/uL Erythrocyte Sedimentation Rate 21 mm/HOUR (0-20) Glomerular Filtration Rate Calc > 60.0 Calcium Level 9.1 mg/dl (8.4-10.2) Total Bilirubin 0.4 mg/dl (0.2-1.3) Aspartate Amino Transf (AST/SGOT) 19 U/L (0-35) Alanine Aminotransferase (ALT/SGPT) 25 U/L (0-56) Alkaline Phosphatase 106 U/L (0-126) C-Reactive Protein 0.6 mg/dl (<1.0) Total Protein 7.7 g/dl (6.3-8.2) Albumin 4.4 g/dl (3.5-5.0) Human Chorionic Gonadotropin, Qual Negative (NEGATIVE) Urine Color Yellow Urine Clarity Cloudy Urine pH 6.0 pH (4.8-9.5) Urine Specific [place] 1.027 Urine Protein Negative mg/dL (NEGATIVE) Urine Glucose (UA) Negative mg/dL (NEGATIVE) Urine Ketones Negative mg/dL (NEGATIVE) Urine Blood Negative (NEGATIVE) Urine Nitrite Negative (NEGATIVE) Urine Bilirubin Negative (NEGATIVE) Urine Urobilinogen 4.0 mg/dL (0.2-1.9) Urine Leukocyte Esterase Moderate (NEGATIVE) Urine RBC 4 /HPF (0-2/HPF) Urine WBC 2 /HPF (0-5/HPF) Urine Squamous Epithelial Cells Many /LPF (</=FEW) Urine Bacteria Negative /HPF (NONE-FEW) Urine Mucus Few /HPF (NONE-FEW) Urinalysis Test 04/29/18 21:28 Urine Color Yellow Urine Clarity Cloudy Urine pH 6.0 pH (4.8-9.5) Urine Specific [place] 1.027 Urine Protein Negative mg/dL (NEGATIVE) Urine Glucose (UA) Negative mg/dL (NEGATIVE) Urine Ketones Negative mg/dL (NEGATIVE) Urine Blood Negative (NEGATIVE) Urine Nitrite Negative (NEGATIVE) Urine Bilirubin Negative (NEGATIVE) Urine Urobilinogen 4.0 mg/dL (0.2-1.9) Urine Leukocyte Esterase Moderate (NEGATIVE) Urine RBC 4 /HPF (0-2/HPF) Urine WBC 2 /HPF (0-5/HPF) Urine Squamous Epithelial Cells Many /LPF (</=FEW) Urine Bacteria Negative /HPF (NONE-FEW) Urine Mucus Few /HPF (NONE-FEW) EKG/Imaging Imaging COMPUTED TOMOGRAPHY ABDOMEN AND PELVIS WITH INTRAVENOUS CONTRAST DATE OF EXAM: 04/29/2018 8:42 PM INDICATION: Bilateral flank pain, dysuria. COMPARISON: 03/05/2018. TECHNIQUE: Contrast enhanced abdomen and pelvis CT performed during the injection of 75 ml of Isovue 370. Sagittal and coronal reconstructions were performed. One of the following dose optimization techniques was utilized in the performance of this exam: Automated exposure control; adjustment of the mA and/or kV according to the patient's size; or use of an iterative reconstruction technique. Specific details can be referenced in the facility's radiology CT exam operational policy. FINDINGS: Lung bases: 4 mm left lower lobe pulmonary nodule on image 10 series 2. Liver and hepatic vasculature: Normal. Gallbladder and bile ducts: Normal. Spleen: Normal. Pancreas: Normal. Adrenals: Normal. Kidneys, ureters and bladder: No acute abnormality or suspicious lesion. Cortical scarring at the superior pole of the right kidney may be related to prior infection, obstruction or vascular insult. Retroperitoneum and aorta: Normal aorta. No adenopathy. GI tract, mesentery and peritoneum: No evidence of obstruction. Normal ap pendix. No pneumatosis, pneumoperitoneum or free fluid. Large volume of stool in the rectum. Uterus and adnexa: Normal. Bones and soft tissues: No acute abnormality or suspicious lesion. IMPRESSION: 1. Large volume of stool in the rectum may indicate a degree of constipation. Otherwise nonacute. 2. Cortical scarring at the superior pole of the right kidney may be related to prior infection, obstruction or vascular insult. 3. 4 mm left lower lobe pulmonary nodule. Current Fleischner Society recommendations for pulmonary nodules in patients less than 35 years of age: Primary lung cancer is rare in persons under 35 years of age (<1% of all cases), and the risks from radiation exposure are greater in younger than in older populations. Management decisions should be made on a case by case basis, and the physician should recognize that infectious causes are more likely than cancer, and that the use of serial CT should be minimized. For larger solid nodules that are clearly visualized and are considered low risk, follow-up with radiography rather than CT may be appropriate to take advantage of the lower cost and lower radiation exposure. Alexis Mclaughlin, Neetu Mac, Nicky J, et al. Guidelines for management of small pulmonary nodules detected on CT images: from the Fleischner society 2017. Report Dictated By: George Dillon MD at 04/29/2018 10:17 PM ED Course/Re-evaluation Clinical Indication for ER IV: Hydration, IV Access ED Course Improved with Morphine and Zofran. Has mild changes on urinalysis, but could be contamination, culture ordered. Treating mainly based on symptoms at this time. Decision to Disposition Date: Apr 29, 2018 Decision to Disposition Time: 23:34 Depart Departure Latest Vital Signs Vital Signs Date Time Temp Pulse Resp B/P (MAP) Pulse Ox O2 Delivery O2 Flow Rate FiO2 04/29/18 22:53 93 94 04/29/18 22:30 112/73 (86) 04/29/18 21:47 Room Air 04/29/18 20:18 98.5 17 Impression: Primary Impression: UTI (urinary tract infection) Condition: Improved Disposition: HOME OR SELF-CARE New Scripts Hydrocodone Bit/Acetaminophen (HYDROCODON-ACETAMINOPHEN 5-325) 1 Each Tablet 1 EACH PO Q4H PRN for PAIN, #8 TAB 0 Refills Prov: THOMAS PARRY MD 04/29/18 Ondansetron (ZOFRAN ODT) 4 Mg Tab.rapdis 4 MG PO Q6H PRN for NAUSEA/VOMITING, #20 TAB.DEREJE 0 Refills Prov: THOMAS PARRY MD 04/29/18 Sulfamethoxazole/Trimet 800-160 Mg Tab (BACTRIM DS TABLET) 1 Each Tablet 1 TAB PO Q12H, #14 TAB 0 Refills Prov: THOMAS PARRY MD 04/29/18 Patient Instructions: Urinary Tract Infection in Women (ED) Additional Instructions: Increase fluid intake. Take Bactrim DS twice a day for 7 days. Take Zofran 4mg, one every 6 hours as needed for nausea. Take Lortab 5/325, one every 4 hours as needed for pain. Problem Qualifiers Primary Impression: UTI (urinary tract infection) Urinary tract infection type: site unspecified Hematuria presence: without hematuria Qualified Codes: N39.0 - Urinary tract infection, site not specified THOMAS PARRY MD Apr 29, 2018 20:35
[2018-04-29] MEDS ORDERED: NS(*) 0.9% 1000 ML BAG 1,000 ML IV ONE (20:42)
[2018-04-29] MEDS ORDERED: MORPHINE 2 MG/ML SYR IVP ONE (20:45)
[2018-04-29] MEDS ORDERED: ONDANSETRON 4 MG/2 ML VIAL IVP ONE (20:45)
[2018-04-29 21:02] LABS: PLATELET COUNT, AUTOMATED 312 K/uL (150-450)
[2018-04-29] MEDS ORDERED: IOPAMIDOL 76% 75 ML INFUS BTL 75 ML ONE (21:28)
[2018-04-29 22:30] VITALS: BP 112/73
--- NOTE | 2018-04-29 22:30 | RADIOLOGY IMAGING REPORT ---
FACILITY: [facility] [place] PATIENT NAME: Letty Valdez : 1995 MR: [id number] V: [id number] EXAM DATE: ORDERING PHYSICIAN: THOMAS PARRY TECHNOLOGIST: Location: [facility] Patient: Letty Valdez : 1995 Visit/Account:[id number] Date of Sevice: 04/29/2018 COMPUTED TOMOGRAPHY ABDOMEN AND PELVIS WITH INTRAVENOUS CONTRAST DATE OF EXAM: 04/29/2018 8:42 PM INDICATION: Bilateral flank pain, dysuria. COMPARISON: 03/05/2018. TECHNIQUE: Contrast enhanced abdomen and pelvis CT performed during the injection of 75 ml of Isovue 370. Sagittal and coronal reconstructions were performed. One of the following dose optimization te chniques was utilized in the performance of this exam: Automated exposure control; adjustment of the mA and/or kV according to the patient's size; or use of an iterative reconstruction technique. Spec [facility] details can be referenced in the facility's radiology CT exam operational policy. FINDINGS: Lung bases: 4 mm left lower lobe pulmonary nodule on image 10 series 2. Liver and hepatic vasculature: Normal. Gallbladder and bile ducts: Normal. Spleen: Normal. Pancreas: Normal. Adrenals: Normal. Kidneys, ureters and bladder: No acute abnormality or suspicious lesion. Cortical scarring at the s uperior pole of the right kidney may be related to prior infection, obstruction or vascular insult. Retroperitoneum and aorta: Normal aorta. No adenopathy. GI tract, mesentery and peritoneum: No evidence of obstruction. Normal appendix. No pneumatosis, p neumoperitoneum or free fluid. Large volume of stool in the rectum. Uterus and adnexa: Normal. Bones and soft tissues: No acute abnormality or suspicious lesion. IMPRESSION: 1. Large volume of stool in the rectum may indicate a degree of constipation. Otherwise nonacute. 2. Cortical scarring at the superior pole of the right kidney may be related to prior infection, obs truction or vascular insult. 3. 4 mm left lower lobe pulmonary nodule. Current Fleischner Society recommendations for pulmonary n odules in patients less than 35 years of age: Primary lung cancer is rare in persons under 35 years o f age (<1% of all cases), and the risks from radiation exposure are greater in younger than in older populations. Management decisions should be made on a case by case basis, and the physician should recognize that infectious causes are more likely than cancer, and that the use of serial CT should be minimized. For larger solid nodules that are clearly visualized and are considered low risk, follow-up with radiogr aphy rather than CT may be appropriate to take advantage of the lower cost and lower radiation exposu re. Alexis H, Neetu D, Nicky J, et al. Guidelines for management of small pulmonary nodules detected on CT images: from the Fleischner society 2017. Report Dictated By: George Dillon MD at 04/29/2018 10:17 PM Report E-Signed By: George Dillon MD at 04/29/2018 10:26 PM [id number]
[2018-04-29] MEDS ORDERED: ONDA4TAB PO (23:35)
[2018-04-29] MEDS ORDERED: LOR5/325 PO (23:35)
[2018-04-29] MEDS ORDERED: SULF-198 PO (23:35)
[2018-04-29] MEDS ORDERED: TRIMETH/SULFA DS 160-800MG TAB PO ONE (23:40)
[2018-04-29] MEDS ORDERED: APAP/HYDROCODONE 325/5 TAB PO ONE (23:40)
== END 2018-04-29 23:50 | disposition home or self-care (01) ==
LOC: ER 20:49
DX: N39.0 Urinary tract infection, site not specified (principal)
CPT/HCPCS: 74177; 81001; 84703; 85025; 85651; 86140; 87077; 87088; 87186; 96361; 96374; 96375; 99284; J2270; J2405; J7030; Q9967; 82040; 82247; 82310; 82374; 82435; 82565; 82947; 84075; 84132; 84155; 84295; 84450; 84460; 84520

== ENCOUNTER → 2018-06-07 | Outpatient (CLI) | payer SELFPAY ==
[~2018-06-07] MED LIST changes: +FLU60VIA41 IM; +LOR5/325 PO; +SULF-198 PO
[2018-06-07 14:34] LABS: PLATELET COUNT, AUTOMATED 289 K/uL (150-450)
== END ==
LOC: LAB 08:46
PROVIDERS: ATTEND Obstetrics & Gynecology
DX: Z34.91 Encounter for supervision of normal pregnancy, unspecified, first trimester (principal); R82.79 Other abnormal findings on microbiological examination of urine
CPT/HCPCS: 36415; 81001; 85025; 86592; 86703; 86762; 86850; 86900; 86901; 87088; 87340

== ENCOUNTER 2018-07-05 15:57 | Emergency (ER) | payer SELFPAY ==
[~2018-07-05 15:57] MED LIST changes: -BUTA1TAB14 PO
[2018-07-05] MEDS ORDERED: NS(*) 0.9% 1000 ML BAG 1,000 ML IV ONE (16:04)
--- NOTE | 2018-07-05 16:04 | ER Report ---
History and Physical Time Seen By MD: 16:01 HPI/ROS CHIEF COMPLAINT: headache, visual changes HISTORY OF PRESENT ILLNESS: Patient is a 23-year-old female at 9 weeks gestation here with complaints of headache for the past 3 days refractory to Tylenol. Patient reports that she is unable take other medications at this time due to her status. This is her 1st gestation with no prior history of miscarriages, abortions. Patient is normotensive at time of evaluation with no focal neurological deficits elicited on exam. Patient does report that she has intermittent visual disturbances consisting of visual field deficits. Yolanda ent denies recent history of trauma. This is her typical migraine though she reports that her visual disturbances are new. REVIEW OF SYSTEMS: Constitutional: No fever, no chills. Eyes: No discharge. ENT: No sore throat. Cardiovascular: No chest pain, no palpitations. Respiratory: No cough, no shortness of breath. Gastrointestinal: No abdominal pain, no vomiting. Genitourinary: No hematuria. Musculoskeletal: No back pain. Skin: No rashes. Neurological: + headache. Allergies: Coded Allergies: nickel (Verified Allergy, Mild, RASH, 07/05/18) fish derived (Verified Allergy, Unknown, 07/05/18) throat swelling Home Meds Active Scripts Butalb/Acetaminophen/Caff 50-325-40 Mg (FIORICET 50-325-40) 1 Each Tablet, 1-2 TAB PO Q6H PRN for HEADACHE, #30 TAB Prov:LEOPOLDO BENJAMIN DO 07/05/18 Ondansetron (ZOFRAN ODT) 4 Mg Tab.rapdis, 4 MG PO Q6H PRN for NAUSEA/VOMITING, #20 TAB.DEREJE 0 Refills Prov:THOMAS PARRY MD 04/29/18 Reported Medications Bupropion Hcl (WELLBUTRIN SR) 150 Mg Tablet.er, 150 MG PO BID, TAB 03/05/18 Hydroxyzine Pamoate (HYDROXYZINE PAMOATE) 25 Mg Capsule, 25 MG PO BID PRN for ANXIETY, CAPSULE TAKE ONE TABLET (25 MG) UP TO TWICE A DAY NEEDED FOR ANXIETY 08/07/17 Trazodone Hcl (TRAZODONE HCL) 50 Mg Tablet, 25-50 MG PO QHS PRN for INSOMNIA TAKE ONE HALF TO ONE TABLET (25 - 50 MG) ABOUT AN HOUR BEFORE YOU PLAN TO GO TO SLEEP NEEDED FOR INSOMNIA. 02/21/17 Discontinued Scripts Doxylamine/Pyridoxine Hcl (UMAIR QUEVEDO 10-10 MG TABLET) 1 Each Tablet.dr, 1 EACH PO DIRECTED, #30 TAB 1 Refill 2 tabs Po QHS, if still having nausea can take 1 tab PO QAM and 1 tab PO at noon. Max 4 tabs per day Prov:FELICIANO HURST DO 06/20/18 Hx Smoking: No Smoking Status: Never Smoker Exposure to Second Hand Smoke?: No Hx Substance Use Disorder: No Hx Alcohol Use: No Constitutional Vital Sign - Last 24 Hours 07/05/18 07/05/18 07/05/18 07/05/18 15:57 16:08 16:09 16:27 Temp 98.8 Pulse ??? 109 ??? Resp 14 B/P (MAP) 118/78 (91) 118/78 Pulse Ox 97 O2 Delivery Room Air 07/05/18 07/05/18 07/05/18 07/05/18 16:33 16:57 17:00 17:15 Pulse 91 Resp 14 B/P (MAP) 108/63 (78) 111/67 (82) 116/74 (88) Pulse Ox 98 07/05/18 07/05/18 07/05/18 07/05/18 17:27 17:30 17:35 17:45 Pulse 88 85 Resp 10 20 B/P (MAP) 116/66 (83) 94/67 (76) Pulse Ox 98 96 Physical Exam General Appearance: The patient is alert, has no immediate need for airway protection and no signs of toxicity. No acute distress Eyes: Pupils equal and round no pallor or injection. ENT, Mouth: Mucous membranes are moist. Respiratory: There are no retractions, lungs are clear to auscultation. Cardiovascular: Regular rate and rhythm. Gastrointestinal: Abdomen is soft and non tender, no masses, bowel sounds normal. Neurological: No focal neurological deficits, extraocular muscles intact Skin: Warm and dry, no rashes. Musculoskeletal: Neck is supple non tender. Extremities are nontender, nonswollen and have full range of motion. DIFFERENTIAL DIAGNOSIS: After history and physical exam differential diagnosis was considered for migraine, tension headache, cerebral edema, hypertensive emergency, preeclampsia Medical Decision Making Data Points Result Diagram: 07/05/18 1621 07/05/18 1621 Laboratory Hematology Test 07/05/18 16:21 07/05/18 16:30 Red Blood Count 4.84 M/uL (4.17-5.56) Mean Corpuscular Volume 90.0 fL (80.0-96.0) Mean Corpuscular Hemoglobin 30.5 pg (26.0-33.0) Mean Corpuscular Hemoglobin Concent 33.9 g/dL (32.0-36.0) Red Cell Distribution Width 15.3 % (11.5-14.5) Mean Platelet Volume 8.5 fL (7.2-11.1) Neutrophils (%) (Auto) 67.5 % (39.4-72.5) Lymphocytes (%) (Auto) 20.7 % (17.6-49.6) Monocytes (%) (Auto) 11.5 % (4.1-12.4) Eosinophils (%) (Auto) 0.0 % (0.4-6.7) Basophils (%) (Auto) 0.3 % (0.3-1.4) Nucleated RBC Relative Count (auto) 0.0 /100WBC Neutrophils # (Auto) 4.1 K/uL (2.0-7.4) Lymphocytes # (Auto) 1.2 K/uL (1.3-3.6) Monocytes # (Auto) 0.7 K/uL (0.3-1.0) Eosinophils # (Auto) 0.0 K/uL (0.0-0.5) Basophils # (Auto) 0.0 K/uL (0.0-0.1) Nucleated RBC Absolute Count (auto) 0.00 K/uL Prothrombin Time 13.0 seconds (12.0-14.4) Prothromb Time International Ratio 0.98 Activated Partial Thromboplast Time 32 seconds (23-35) Sodium Level 133 mmol/L (137-145) Potassium Level 3.5 mmol/L (3.5-5.0) Chloride Level 100 mmol/L (98-107) Carbon Dioxide Level 22 mmol/L (22-31) Blood Urea Nitrogen 10 mg/dl (7-18) Creatinine 0.50 mg/dl (0.52-1.04) Glomerular Filtration Rate Calc > 60.0 Random Glucose 94 mg/dl (75-110) Calcium Level 8.8 mg/dl (8.4-10.2) Magnesium Level 1.8 mg/dl (1.7-2.2) Total Bilirubin 0.2 mg/dl (0.2-1.3) Aspartate Amino Transf (AST/SGOT) 37 U/L (0-35) Alanine Aminotransferase (ALT/SGPT) 49 U/L (0-56) Alkaline Phosphatase 129 U/L (0-126) Total Protein 7.5 g/dl (6.3-8.2) Albumin 4.1 g/dl (3.5-5.0) Lipase 90 U/L (23-300) Human Chorionic Gonadotropin, Quant 243242 mIU/ml Urine Color Yellow Urine Clarity Slightly-cloudy Urine pH 5.0 pH (4.8-9.5) Urine Specific Dixon 1.019 Urine Protein Negative mg/dL (NEGATIVE) Urine Glucose (UA) Negative mg/dL (NEGATIVE) Urine Ketones Negative mg/dL (NEGATIVE) Urine Blood Negative (NEGATIVE) Urine Nitrite Negative (NEGATIVE) Urine Bilirubin Negative (NEGATIVE) Urine Urobilinogen 2.0 mg/dL (0.2-1.9) Urine Leukocyte Esterase Small (NEGATIVE) Urine RBC 2 /HPF (0-2/HPF) Urine WBC 13 /HPF (0-5/HPF) Urine Squamous Epithelial Cells Many /LPF (</=FEW) Urine Bacteria Few /HPF (NONE-FEW) Urine Mucus Few /HPF (NONE-FEW) Chemistry Test 07/05/18 16:21 07/05/18 16:30 White Blood Count 6.0 k/uL (4.5-11.0) Red Blood Count 4.84 M/uL (4.17-5.56) Hemoglobin 14.8 g/dL (12.0-16.0) Hematocrit 43.6 % (34.0-47.0) Mean Corpuscular Volume 90.0 fL (80.0-96.0) Mean Corpuscular Hemoglobin 30.5 pg (26.0-33.0) Mean Corpuscular Hemoglobin Concent 33.9 g/dL (32.0-36.0) Red Cell Distribution Width 15.3 % (11.5-14.5) Platelet Count 222 K/uL (150-450) Mean Platelet Volume 8.5 fL (7.2-11.1) Neutrophils (%) (Auto) 67.5 % (39.4-72.5) Lymphocytes (%) (Auto) 20.7 % (17.6-49.6) Monocytes (%) (Auto) 11.5 % (4.1-12.4) Eosinophils (%) (Auto) 0.0 % (0.4-6.7) Basophils (%) (Auto) 0.3 % (0.3-1.4) Nucleated RBC Relative Count (auto) 0.0 /100WBC Neutrophils # (Auto) 4.1 K/uL (2.0-7.4) Lymphocytes # (Auto) 1.2 K/uL (1.3-3.6) Monocytes # (Auto) 0.7 K/uL (0.3-1.0) Eosinophils # (Auto) 0.0 K/uL (0.0-0.5) Basophils # (Auto) 0.0 K/uL (0.0-0.1) Nucleated RBC Absolute Count (auto) 0.00 K/uL Prothrombin Time 13.0 seconds (12.0-14.4) Prothromb Time International Ratio 0.98 Activated Partial Thromboplast Time 32 seconds (23-35) Glomerular Filtration Rate Calc > 60.0 Calcium Level 8.8 mg/dl (8.4-10.2) Magnesium Level 1.8 mg/dl (1.7-2.2) Total Bilirubin 0.2 mg/dl (0.2-1.3) Aspartate Amino Transf (AST/SGOT) 37 U/L (0-35) Alanine Aminotransferase (ALT/SGPT) 49 U/L (0-56) Alkaline Phosphatase 129 U/L (0-126) Total Protein 7.5 g/dl (6.3-8.2) Albumin 4.1 g/dl (3.5-5.0) Lipase 90 U/L (23-300) Human Chorionic Gonadotropin, Quant 070816 mIU/ml Urine Color Yellow Urine Clarity Slightly-cloudy Urine pH 5.0 pH (4.8-9.5) Urine Specific Dixon 1.019 Urine Protein Negative mg/dL (NEGATIVE) Urine Glucose (UA) Negative mg/dL (NEGATIVE) Urine Ketones Negative mg/dL (NEGATIVE) Urine Blood Negative (NEGATIVE) Urine Nitrite Negative (NEGATIVE) Urine Bilirubin Negative (NEGATIVE) Urine Urobilinogen 2.0 mg/dL (0.2-1.9) Urine Leukocyte Esterase Small (NEGATIVE) Urine RBC 2 /HPF (0-2/HPF) Urine WBC 13 /HPF (0-5/HPF) Urine Squamous Epithelial Cells Many /LPF (</=FEW) Urine Bacteria Few /HPF (NONE-FEW) Urine Mucus Few /HPF (NONE-FEW) Coagulation Test 07/05/18 16:21 Prothrombin Time 13.0 seconds Prothromb Time International Ratio 0.98 Activated Partial Thromboplast Time 32 seconds Urinalysis Test 07/05/18 16:30 Urine Color Yellow Urine Clarity Slightly-cloudy Urine pH 5.0 pH (4.8-9.5) Urine Specific Dixon 1.019 Urine Protein Negative mg/dL (NEGATIVE) Urine Glucose (UA) Negative mg/dL (NEGATIVE) Urine Ketones Negative mg/dL (NEGATIVE) Urine Blood Negative (NEGATIVE) Urine Nitrite Negative (NEGATIVE) Urine Bilirubin Negative (NEGATIVE) Urine Urobilinogen 2.0 mg/dL (0.2-1.9) Urine Leukocyte Esterase Small (NEGATIVE) Urine RBC 2 /HPF (0-2/HPF) Urine WBC 13 /HPF (0-5/HPF) Urine Squamous Epithelial Cells Many /LPF (</=FEW) Urine Bacteria Few /HPF (NONE-FEW) Urine Mucus Few /HPF (NONE-FEW) EKG/Imaging Imaging Location: [facility] [place] Patient: Letty Valdze : 1995 Visit/Account:[id number] Date of Sevice: 07/05/2018 CT Head without contrast Indication: Headache Comparison: 03/29/2018. Technique: Axial CT images were obtained through the brain from the skull base to the vertex without administration of IV contrast. Reformatted coronal and sagittal images were also obtained. One of the following dose optimization techniques was utilized in the performance of this exam: automated exposure control; adjustment of the mA and/or kV according to the patient's size; or use of an iterative reconstruction technique. Specific details can be referenced in the facility's radiology CT exam operational policy. Findings: No evidence of mass, mass effect, or midline shift. No acute intracranial hemorrhage or acute territorial infarction. No extra-axial fluid collection or hydrocephalus. No abnormal density. Huffman/white matter differentiation appears normal. Bony structures show no fractures or lesions. Stable cyst/polyp in the inferior aspect of the left maxillary sinus. The ami ining sinuses and mastoids visualized are clear. IMPRESSION: 1. No acute intracranial abnormality. 2. Stable cyst/polyp in the inferior aspect of the left maxillary sinus. ED Course/Re-evaluation ED Course Patient is a 23-year-old female here with complaints of headache for the past several days refractory to Tylenol. She is 9 weeks at this time and is only taking Tylenol for headache treatment. She reports that her visual field deficits are new today. She has no focal neurological deficits on physical exam. Due to her new onset of neurological findings, CT imaging was completed and showed no acute findings, bleeding, masses or edema. Patient was noted to be normotensive, urinalysis showed no proteinuria. Based on the fact that the patient is less than 20 weeks gestation, preeclampsia is not a likely culprit. Patient was given an IV fluid bolus, Zofran, magnesium, Benadryl for migraine cocktail with significant improvement of symptoms. I discussed the patient with Dr. Akhtar who is her HABILITATION TRAINING SPECIALIST who recommended prescribing the patient fioricet for migraine treatment. Patient was also noted to have bacteria in the urine so the sample was sent off for culture and patient was advised to follow-up with Dr. Akhtar. Patient voiced understanding of the plan and was stable at time of discharge. Decision to Disposition Date: Jul 05, 2018 Decision to Disposition Time: 18:00 Depart Departure Latest Vital Signs Vital Signs Date Time Temp Pulse Resp B/P (MAP) Pulse Ox O2 Delivery O2 Flow Rate FiO2 07/05/18 17:45 94/67 (76) 07/05/18 17:35 85 20 96 07/05/18 16:09 98.8 Room Air Impression: Primary Impression: Headache Condition: Improved Disposition: HOME OR SELF-CARE Referrals: ROLANDA AKHTAR MD (PCP) New Scripts Butalb/Acetaminophen/Caff 50-325-40 Mg (FIORICET 50-325-40) 1 Each Tablet 1-2 TAB PO Q6H PRN for HEADACHE, #30 TAB Prov: LEOPOLDO BENJAMIN DO 07/05/18 Patient Instructions: Acute Headache (ED) Additional Instructions: You may take 1 tablet of Fioricet every 6-8 hours as needed for headache management. This medication contains Tylenol, please do not exceed 3 g of Tylenol per day. Please follow up closely with Dr. Akhtar. Please return promptly if you develop worsening headache, fevers, nausea, vomiting, weakness. LEOPOLDO BENJAMIN DO Jul 05, 2018 16:04
[2018-07-05] MEDS ORDERED: ACETAMINOPHEN(*)1000 MG/100 ML 100 ML IVPB ONE (16:15)
[2018-07-05 16:29] LABS: PLATELET COUNT, AUTOMATED 222 K/uL (150-450)
[2018-07-05] MEDS ORDERED: ONDANSETRON 4 MG/2 ML VIAL IVP ONE (16:30)
[2018-07-05] MEDS ORDERED: MAGNESIUM SUL/D5W* 1 GM/100 ML 100 ML IVPB ONE (16:30)
[2018-07-05] MEDS ORDERED: diphenhydrAMINE 50 MG/ML VIAL IVP ONE (16:30)
[2018-07-05 16:39] LABS: INR 0.98
--- NOTE | 2018-07-05 17:26 | RADIOLOGY IMAGING REPORT ---
FACILITY: [facility] [place] PATIENT NAME: Letty Valdez : 1995 MR: [id number] V: [id number] EXAM DATE: ORDERING PHYSICIAN: LEOPOLDO BENJAMIN TECHNOLOGIST: Location: [facility] Patient: Letty Valdez : 1995 Visit/Account:[id number] Date of Sevice: 07/05/2018 CT Head without contrast Indication: Headache Comparison: 03/29/2018. Technique: Axial CT images were obtained through the brain from the skull base to the vertex without administration of IV contrast. Reformatted coronal and sagittal images were also obtained. One of the following dose optimization techniques was utilized in the performance of this exam: autom ated exposure control; adjustment of the mA and/or kV according to the patient's size; or use of an i terative reconstruction technique. Specific details can be referenced in the facility's radiology CT exam operational policy. Findings: No evidence of mass, mass effect, or midline shift. No acute intracranial hemorrhage or acute territorial infarction. No extra-axial fluid collection or hydrocephalus. No abnormal density. Huffman/white matter differentiat ion appears normal. Bony structures show no fractures or lesions. Stable cyst/polyp in the inferior aspect of the left maxillary sinus. The remaining sinuses and masto ids visualized are clear. IMPRESSION: 1. No acute intracranial abnormality. 2. Stable cyst/polyp in the inferior aspect of the left maxillary sinus. Report Dictated By: Patrick Gallegos at 07/05/2018 5:18 PM Report E-Signed By: Patrick Gallegos at 07/05/2018 5:23 PM WSN:[email or web address]
[2018-07-05] MEDS ORDERED: BUTA1TAB14 PO (17:34)
[2018-07-05 18:00] VITALS: BP 103/67
== END 2018-07-05 18:07 | disposition home or self-care (01) ==
LOC: ER 16:18
DX: O26.891 Other specified pregnancy related conditions, first trimester (principal); R51 Headache; Z3A.09 9 weeks gestation of pregnancy
CPT/HCPCS: 70450; 81001; 83690; 83735; 84702; 85025; 85610; 85730; 87077; 87088; 87186; 96365; 96367; 96375; 99284; J0131; J1200; J2405; J3475; J7030; 82040; 82247; 82310; 82374; 82435; 82565; 82947; 84075; 84132; 84155; 84295; 84450; 84460; 84520

== ENCOUNTER → 2018-07-05 | Outpatient (CLI) | payer SELFPAY ==
[~2018-07-05] MED LIST changes: +BUTA1TAB14 PO; +DOXY1TAB3 PO
== END ==
LOC: LAB 13:47
PROVIDERS: ATTEND Obstetrics & Gynecology
DX: N94.9 Unspecified condition associated with female genital organs and menstrual cycle (principal)
CPT/HCPCS: 87210

== ENCOUNTER → 2018-09-30 | Outpatient (CLI) | payer SELFPAY ==
[~2018-09-30] MED LIST changes: +BUTA1TAB14 PO; +FLUC150T40 PO
--- NOTE | 2018-09-30 13:51 | RADIOLOGY IMAGING REPORT ---
FACILITY: [facility] PATIENT NAME: Letty Valdez : 1995 MR: [id number] V: [id number] EXAM DATE: ORDERING PHYSICIAN: AKILAH GILES TECHNOLOGIST: Location: [facility] Patient: Letty Valdez : 1995 Visit/Account:[id number] Date of Sevice: 09/30/2018 Exam type: [place] [facility] OB LIIMITED History: anatomical of heart and trachea Comparison: The prior images are not available. There is a report from the [facility] request seen additional three vessel-trachea view of the heart Findings: Single fetus was demonstrated in breech presentation. The heart rate was 152 bpm Additional images of the right ventricular outflow tract, left ventricular outflow track and great ve ssels appeared unremarkable IMPRESSION: 1. Additional images of the right ventricular outflow tract, left ventricular outflow track and grea t vessels appeared unremarkable Report Dictated By: Dianne Meneses MD at 09/30/2018 1:39 PM Report E-Signed By: Dianne Meneses MD at 09/30/2018 1:47 PM WSN:[email or web address]
== END ==
LOC: RAD 10:17
PROVIDERS: ATTEND Obstetrics & Gynecology
DX: Z02.9 Encounter for administrative examinations, unspecified (principal)

== ENCOUNTER → 2018-10-22 | Outpatient (CLI) | payer SELFPAY ==
[~2018-10-22] MED LIST changes: +BENZ100C4 PO
[2018-10-22 11:09] LABS: PLATELET COUNT, AUTOMATED 343 K/uL (150-450)
== END ==
LOC: LAB 10:45
PROVIDERS: ATTEND Advanced Practice Midwife
DX: R42 Dizziness and giddiness (principal)
CPT/HCPCS: 36415; 85025

== ENCOUNTER 2018-11-13 22:30 | Outpatient (CLI) | payer MEDICAID ==
[~2018-11-13] VITALS: Ht 162.6 cm; Wt 83.5 kg
[2018-11-13 22:45] VITALS: BP 123/59
[2018-11-13 23:00] VITALS: BP 123/59; Ht 162.6 cm; Wt 83.5 kg
[2018-11-13] MEDS ORDERED: ACETAMINOPHEN 500 MG TAB PO ONE (23:30)
[2018-11-13] MEDS ORDERED: ACET-1966 PO (23:37)
[2018-11-13 23:47] LABS: PLATELET COUNT, AUTOMATED 294 K/uL (150-450)
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
--- NOTE | 2018-11-14 00:31 | OB/GYN Discharge Summary ---
Discharge Summary Reason for Hosp/Final Diag: (1) Abdominal pain Status: Acute Hospital Course & Plan: 23yo at 28.1 with 6 days of intermittent, sharp RUQ pain. Worsened by eating. No e/o of acute cholecystitis. No e/o pylonephritis. No e/o pre-eclampsia, labor, or abruption. Mild frontal HERR resolved with tylenol. testing reassuring. Suspect biliary colic. Recommend low fat diet, consider general surgery consult as outpatient if continues. Weight (Pounds): 184 Condition: Improved Discharge: Home Home Meds Active Scripts Benzonatate 100 Mg Cap (TESSALON PERLE 100 MG CAP) 100 Mg Capsule, 100 MG PO TID for cough, #25 CAP 0 Refills Prov:AKILAH GILES CNM 10/07/18 Butalb/Acetaminophen/Caff 50-325-40 Mg (FIORICET 50-325-40) 1 Each Tablet, 1-2 TAB PO Q6H PRN for HEADACHE, #30 TAB Prov:LEOPOLDO BENJAMIN DO 07/05/18 Reported Medications Acetaminophen (TYLENOL) 325 Mg Tablet, 325 MG PO, TAB 11/13/18 Bupropion Hcl (WELLBUTRIN SR) 150 Mg Tablet.er, 150 MG PO BID, TAB 03/05/18 Hydroxyzine Pamoate (HYDROXYZINE PAMOATE) 25 Mg Capsule, 25 MG PO BID PRN for ANXIETY, CAPSULE TAKE ONE TABLET (25 MG) UP TO TWICE A DAY NEEDED FOR ANXIETY 08/07/17 [place] [facility] [place] [phone] Follow up in: Keep scheduled appoint Discharge Activity: As Tolerates Special Instructions: Low-fat diet Problem Qualifiers (1) Abdominal pain: Abdominal location: right upper quadrant Qualified Codes: R10.11 - Right upper quadrant pain DINA HUNTER MD Nov 14, 2018 00:31
--- NOTE | 2018-11-14 00:36 | RADIOLOGY IMAGING REPORT ---
FACILITY: [facility] [place] PATIENT NAME: Letty Valdez : 1995 MR: [id number] V: [id number] EXAM DATE: ORDERING PHYSICIAN: DINA HUNTER TECHNOLOGIST: Location: [facility] Patient: Letty Valdez : 1995 Visit/Account:[id number] Date of Sevice: 11/13/2018 Focused right upper quadrant ultrasound HISTORY: Epigastric pain. COMPARISON: CT abdomen and pelvis without contrast dated 04/29/2018. Findings: Standard right upper quadrant abdominal ultrasound is performed. Pancreas: Visualized portions of the pancreas are unremarkable. Liver: Negative. Gallbladder and biliary system: No gallbladder stone or sludge. No wall thickening, pericholecystic f luid, or sonographic Montanez's. The common bile duct is not dilated. Aorta and IVC: The visualized aorta and IVC are patent. Kidneys: The right kidney measures 9.8 x 4.4 x 4.0 cm. Normal echogenicity. No hydronephrosis. Ascites: None. IMPRESSION: Normal right upper quadrant ultrasound. Report Dictated By: Dom Montemayor MD at 11/14/2018 12:30 AM Report E-Signed By: Dom Montemayor MD at 11/14/2018 12:32 AM WSN:[id number]
[2018-11-15] MEDS ORDERED: DIPH0.5D12 IM (09:56)
== END 2018-11-14 00:28 | disposition home or self-care (01) ==
LOC: OB 22:30 → UNDOADMOB 22:30 → OB 22:30 → L&D 22:30 → UNDODISOB 11-14 00:28 → EDSTATUS 11-15 06:49
PROVIDERS: ATTEND Obstetrics & Gynecology
DX: O26.893 Other specified pregnancy related conditions, third trimester (principal); Z3A.28 28 weeks gestation of pregnancy
CPT/HCPCS: 36415; 59025; 76705; 81001; 85025; G0378; G0379; 82040; 82247; 82310; 82374; 82435; 82565; 82947; 84075; 84132; 84155; 84295; 84450; 84460; 84520; 99213

== ENCOUNTER → 2018-11-15 | Outpatient (CLI) | payer MEDICAID ==
[2018-11-13 23:00] VITALS: BMI 31.6
[~2018-11-15] MED LIST changes: +ACET-1966 PO; +DIPH0.5D12 IM
== END ==
LOC: LAB 08:49
PROVIDERS: ATTEND Advanced Practice Midwife
DX: Z34.92 Encounter for supervision of normal pregnancy, unspecified, second trimester (principal)
CPT/HCPCS: 36415; 82950

== ENCOUNTER → 2018-12-27 | Outpatient (CLI) | payer MEDICAID ==
[2018-11-13 23:00] VITALS: BMI 31.6
[~2018-12-27] MED LIST changes: -DIPH0.5D12 IM; +DIPH0.5S2 IM
== END ==
LOC: LAB 11:28
PROVIDERS: ATTEND Advanced Practice Midwife
DX: R80.9 Proteinuria, unspecified (principal)
CPT/HCPCS: 82570; 84156

== ENCOUNTER → 2019-01-03 | Outpatient (CLI) | payer MEDICAID ==
[2018-11-13 23:00] VITALS: BMI 31.6
[~2019-01-03] MED LIST changes: +BET6I IM ONLY
== END ==
LOC: LAB 10:47
PROVIDERS: ATTEND Advanced Practice Midwife
DX: Z36.85 Encounter for antenatal screening for Streptococcus B (principal); O13.9 Gestational [pregnancy-induced] hypertension without significant proteinuria, unspecified trimester
CPT/HCPCS: 36415; 82040; 82247; 82310; 82374; 82435; 82565; 82570; 82947; 84075; 84132; 84155; 84156; 84295; 84450; 84460; 84520; 85027; 87081

== ENCOUNTER 2019-01-04 12:49 | Outpatient (CLI) | payer MEDICAID ==
[~2019-01-04] VITALS: Ht 162.6 cm; Wt 96.2 kg
[~2019-01-04 12:49] MED LIST changes: -BET6I IM ONLY
[2019-01-04 13:00] VITALS: BP 120/77; Ht 162.6 cm; Wt 96.2 kg
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
--- NOTE | 2019-01-04 16:06 | RADIOLOGY IMAGING REPORT ---
FACILITY: [facility] PATIENT NAME: Letty Valdez : 1995 MR: [id number] V: [id number] EXAM DATE: ORDERING PHYSICIAN: NAFISA KHANNA [place]CHNOLOGIST[place] [facility] [place]ty Val[place] : 1995 Visit/Account:[id number] Date of Sevice: 01/04/2019 EXAMINATION: Biophysical Profile COMPARISON: None. HISTORY: no breathing noted on 01/03/19 in office AGE: 35 weeks 3 days FINDINGS: Standard transabdominal ultrasound for biophysical profile was performed. Presentation: Cephalic with the spine to the maternal left. Placenta: Anterior heart rate: 139 bpm Amniotic fluid index: 16.2 cm Largest fluid pocket: 5.6 cm Biophysical profile: breathing movement: 2/2 Gross body movement: 2/2 tone: 2/2 Amniotic fluid volume: 2/2 Total score: 8/8 IMPRESSION: 1. Biophysical profile score: 8/8 2. Amniotic fluid index: 16.2 cm 3. heart rate: 139 bpm Report Dictated By: Saran Lovelace MD at 01/04/2019 4:01 PM Report E-Signed By: Saran Lovelace MD at 01/04/2019 4:02 PM [id number]:[email or web address]
[2019-01-06] MEDS ORDERED: BET6I IM ONLY (12:23)
[2019-01-07] MEDS ORDERED: BET6I IM ONLY (11:50)
== END 2019-01-04 17:00 | disposition home or self-care (01) ==
LOC: OB 12:49 → UNDOADMIN 12:49 → L&D 12:49 → EDSTATUS 13:13 → L&D 17:00 → UNDODISIN 17:00
PROVIDERS: ATTEND Obstetrics & Gynecology
DX: O16.3 Unspecified maternal hypertension, third trimester (principal); Z3A.35 35 weeks gestation of pregnancy
CPT/HCPCS: 59025; 76819; 84156; G0463; 99213

== ENCOUNTER 2019-01-08 12:53 | Inpatient (IN) | payer MEDICAID ==
[~2019-01-08] VITALS: Ht 162.6 cm; Wt 93.0 kg
[~2019-01-08 12:53] MED LIST changes: +BET6I IM ONLY
[2019-01-08] MEDS ORDERED: PROMETHAZINE 25 MG/ML 1 ML AMP IVP PRN (13:35)
[2019-01-08] MEDS ORDERED: LABETALOL HCL 100 MG/20ML VIAL IVP PRN (13:40)
[2019-01-08] MEDS ORDERED: NIFEdipine 10 MG CAP PO ONE ×2 (13:50→14:09)
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
[2019-01-08] MEDS ORDERED: ACETAMINOPHEN 500 MG TAB PO ONE (14:10)
[2019-01-08] MEDS ORDERED: MAGNESIUM SUL* 4 GM/100 ML BAG 100 ML IVPB ONE (14:10)
[2019-01-08] MEDS ORDERED: MAGNESIUM SULF 20 GM/500 ML IV 500 ML ONE (14:27)
[2019-01-08] MEDS ORDERED: MAGNESIUM SUL* 4 GM/100 ML BAG 100 ML ONE (14:29)
[2019-01-08 15:04] LABS: PLATELET COUNT, AUTOMATED 262 K/uL (150-450)
[2019-01-08] MEDS: MISOPROSTOL 25 MCG CAP BU PRN ×2 (15:17→19:32)
[2019-01-08] MEDS: LR(*) 1000 ML BAG 1,000 ML IV PRN (15:17)
[2019-01-08] MEDS: MAGNESIUM SULF 20 GM/500 ML IV 500 ML IV SCH (16:48)
[2019-01-08] MEDS ORDERED: FLUSH 10 ML SYR IV SCH (17:00)
--- NOTE | 2019-01-08 19:13 | Labor Progress Note ---
Labor Subjective Progress Notes Subjective Pt is feeling better after the bolus of mag, but does feel dizzy and weak when she sits up. She denies HERR, vision changes and RUQ pain. She is feeling very tired and would like to rest a little. She is feeling some uterine tightening, but not any pain at this time. Feeling Movement?: Yes Labor Pain: Mild Neurological: Headache (Headache is gone but neck is very sore) Eyes: No Visual Disturbances Labor Objective Cervical Dialation: 2 Cervical Effacement (%): 50 Cervical Consistency: Moderate Cervical Position: Mid Station: -2 Presentation: Vertex Uterine Contractions(Q min): 10 Uterine Contraction Strength: Mild UC Resting Tone: Soft Fetus Heart Tones: 115 Heart Tone Variabilty: Moderate FHT Accelerations: Present FHT Decelerations: None FHT Category: I General Exam General Appearance: Alert/Awake/No Acute Distress ENT: Normal Neck: No Masses Cardiovascular: Normal Rhythm & Peripheral Pulses Respiratory: No Respiratory Distress, Clear to Auscultation Abdomen: Gravid - Non-Tender, RUQ Non-Tender : Normal Musculoskeletal: No Weakness/Pain Extremities: No Cyanosis,Clubbing or Edema Integumentary: Skin Intact without Lesions or Rash Psychological: Alert & Oriented X3, Appropriate Mood & Affect Other Result Diagram: 01/08/19 1401 01/08/19 1401 Assessment and Plan Problems: (1) Pre-eclampsia in third trimester Onset Date: ~ 01/08/2019 Status: Acute Assessment & Plan: EMMA is a 23 y.o. at 36w0d wks with an Estimated Date of Delivery: 02/05/19 dated by LMP and first trimester US here today for IOL for Pre eclampsia with severe features Labor state: Not in labor. Good cervical change with 1st dose of Cytotec. BP normal range now, without HERR, vision changes or RUQ pain. Lopez score 5. Plan for second dose of 25mcg of buccal Cytotec. Reevaluate cervix in 4 hours from Cytotec and plan for Pitocin if lopez score >8. Continue position changes with peanut ball to encourage opening of pelvic outlet. well-being: Category I FHT: continuous monitoring for high risk Maternal well-being: Normotensive, afebrile, membranes presumed intact. Will monitor BP very closely and treat as needed for > 160/110 PNL: GBS neg, Type/Rh O+, rubella immune Pain Management: Comfortable Feed: Breast; part of nurse family partnership so a nurse will visit her in the hospital to help with c/b: * Social issues: Has a restraining order against FOB for DV, unemployed, but does have an apartment and help from friends * GHTN diagnosis last week with normal 24 hour urine and labs * PreEclampsia with severe features with diagnosis upon admit to L&D, P:C 1.10, other labs WNL Anticipate continued cervical ripening, re-evaluate in 3-4 hours or prn AKILAH GILES CNM January 08, 2019 19:13
[2019-01-08] MEDS ORDERED: MISOPROSTOL 25 MCG CAP BU ONE (19:25)
[2019-01-08] MEDS ORDERED: CALCIUM CARBONATE 500 MG CHEW PO PRN (20:05)
[2019-01-08] MEDS ORDERED: ONDANSETRON 4 MG/2 ML VIAL IVP PRN (20:05)
[2019-01-08] MEDS ORDERED: CALCIUM GLUC 10% 100 MG/ML VL IVP PRN (20:20)
[2019-01-08] MEDS: ACETAMINOPHEN 500 MG TAB PO PRN (20:30)
[2019-01-08 22:48] VITALS: BP 148/94; Ht 162.6 cm; Wt 93.0 kg
[2019-01-08] MEDS ORDERED: OXYTOCIN 30 UNIT/NS 500 ML 500 ML ONE (23:40)
--- NOTE | 2019-01-08 23:53 | Labor Progress Note ---
Labor Subjective Progress Notes Subjective Pt has been sleeping on and off in the last few hours. Reports her headache comes and goes. The Tylenol helps some, but overall she feels weak. She denies vision changes and RUQ pain. She is having contractions but does not feel any pain. Feeling Movement?: Yes Vaginal Discharge/Fluid: No Bloody Show, No Clear Fluid, No Bloody Fluid Labor Pain: Mild Neurological: Headache (mild to moderate pain) Eyes: No Visual Disturbances Labor Objective Vital Signs Vital Signs Date Time Temp Pulse Resp B/P (MAP) Pulse Ox O2 Delivery O2 Flow Rate FiO2 01/08/19 22:48 98.4 57 148/94 (112) Cervical Dialation: 4 Cervical Effacement (%): 60 Cervical Consistency: Moderate Cervical Position: Mid Station: -2 Presentation: Vertex Uterine Contractions(Q min): 6 Uterine Contraction Strength: Mild UC Resting Tone: Soft Fetus Estimated Weight(grams): 3000 Heart Tones: 125 Heart Tone Variabilty: Moderate FHT Accelerations: Present FHT Decelerations: None FHT Category: I General Exam General Appearance: Alert/Awake/No Acute Distress, Afebrile ENT: Normal Neck: No Masses Cardiovascular: Normal Rhythm & Peripheral Pulses Respiratory: No Respiratory Distress Abdomen: Gravid - Non-Tender, RUQ Non-Tender : Normal Musculoskeletal: No Weakness/Pain Extremities: No Cyanosis,Clubbing or Edema Integumentary: Skin Intact without Lesions or Rash Psychological: Alert & Oriented X3, Appropriate Mood & Affect Other Result Diagram: 01/08/19 1401 01/08/19 1401 Assessment and Plan 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 at 36w0d wks with an Estimated Date of Delivery: 02/05/19 dated by LMP and first trimester US here today for IOL for Pre eclampsia with severe features Labor state: Early labor. Good cervical change in 4 hours. Rodriguez score 7. Plan to continue induction with Pitocin titration at 2mu/hr and increase every 20 minutes until adequate contraction reached. Continue position changes with peanut ball to encourage opening of pelvic outlet. well-being: Category I FHT: continuous monitoring for high risk Maternal well-being: Mild range to normal BPs, afebrile, membranes presumed intact. Will monitor BP very closely and treat as needed for > 160/110. Continue Magnesium sulfate IV for seizure prophylaxis and Tylenol for HERR if needed. Monitor for s/s of magnesium toxicity PNL: GBS neg, Type/Rh O+, rubella immune Pain Management: Comfortable Feed: Breast; part of nurse family partnership so a nurse will visit her in the hospital to help with c/b: * Social issues: Has a restraining order against FOB for DV, unemployed, but does have an apartment and help from friends * GHTN diagnosis last week with normal 24 hour urine and labs * PreEclampsia with severe features with diagnosis upon admit to L&D, P:C 1.10, other labs WNL Anticipate labor progression, re-evaluate in 3-4 hours or prn AKILAH GILES CNM January 08, 2019 23:53
[2019-01-08] MEDS ORDERED: fentaNYL CITR 100 MCG/2 ML AMP IVP PRN (23:55)
[2019-01-08] MEDS ORDERED: OXYTOCIN 30 UNIT/NS 500 ML 500 ML IV PRN (23:55)
[2019-01-09] VITALS (9 sets, daily range): BP systolic 127–146; BP diastolic 83–104
[2019-01-09] MEDS ORDERED: OXYTOCIN 30 UNIT/NS 500 ML 500 ML IV PRN (03:23)
[2019-01-09] MEDS: ACETAMINOPHEN 500 MG TAB PO PRN (03:53)
--- NOTE | 2019-01-09 04:06 | Labor Progress Note ---
Labor Subjective Progress Notes Subjective Pt has been able to rest for the past few hours, not feeling her contractions. She still reports a headache that gets better bu then becomes worse again. She denies visual disturbances and RUQ pain. She generally feels very weak. Feeling Movement?: Yes Vaginal Discharge/Fluid: Bloody Show, Clear Fluid, Large Amount Labor Pain: Moderate (after AROM is able to feel contractions now) Neurological: Headache (tyelenol and ice pack given) Eyes: No Visual Disturbances Labor Objective Vital Signs Vital Signs Date Time Temp Pulse Resp B/P (MAP) Pulse Ox O2 Delivery O2 Flow Rate FiO2 01/08/19 22:48 98.4 57 148/94 (112) Vaginal Discharge/Fluid?: Bloody Show, Clear Fluid, Moderate Amount Cervical Dialation: 4 Cervical Effacement (%): 60 Cervical Consistency: Soft Cervical Position: Mid Station: -1 Presentation: Vertex Uterine Contraction Strength: Moderate (after AROM) UC Resting Tone: Soft Fetus Heart Tones: 115 Heart Tone Variabilty: Moderate FHT Accelerations: Present FHT Decelerations: None FHT Category: I General Exam General Appearance: Alert/Awake/No Acute Distress, Afebrile ENT: Normal Cardiovascular: Normal Rhythm & Peripheral Pulses Respiratory: No Respiratory Distress, Clear to Auscultation Abdomen: Gravid - Non-Tender, RUQ Non-Tender, Fundus - Non-Tender : Normal Extremities: Reflexes; No Clonus Integumentary: Skin Intact without Lesions or Rash Psychological: Alert & Oriented X3, Appropriate Mood & Affect Other Result Diagram: 01/08/19 1401 01/08/19 1401 Assessment and Plan Problems: (1) Pre-eclampsia in third trimester Onset Date: ~ 01/08/2019 Status: Acute Assessment & Plan: CH is a 23 y.o. at 36w1d wks with an Estimated Date of Delivery: 02/05/19 dated by LMP and first trimester US here today for IOL for Pre eclampsia with severe features Labor state: Early labor. No cervical change in 4 hours, so discussed R/B/A with pt of AROM. Pt agrees to AROM. AROM for large amount of clear fluid with good decent. Plan to continue with Pitocin titration at 2mu/min and increase every 20 minutes up until 30mu/mi. Continue position changes with peanut ball/pillow to encourage opening of pelvic outlet. well-being: Category I FHT: baseline remains at 115-120 with moderate variability, positive accelerations with no decelerations. Continuous monitoring for high risk Maternal well-being: Mild range to normal BPs, afebrile, AROM @ 0332 for large clear fluid. Will continue to monitor BP very closely and treat as needed for > 160/110. Continue Magnesium sulfate IV for seizure prophylaxis and Tylenol for HERR if needed. Monitor for s/s of magnesium toxicity PNL: GBS neg, Type/Rh O+, rubella immune Pain Management: reporting she is able to feel the contractions after AROM, still comfortable, but will make us aware if she needs pain meds or epidural Feed: Breast; part of nurse family partnership so a nurse will visit her in the hospital to help with c/b: * Social issues: Has a restraining order against FOB for DV, unemployed, but does have an apartment and help from friends * GHTN diagnosis last week with normal 24 hour urine and labs * PreEclampsia with severe features with diagnosis upon admit to L&D, P:C 1.10, other labs WNL Anticipate labor progression to active labor , re-evaluate in 3-4 hours or prn AKILAH GILES CNM January 09, 2019 04:06
[2019-01-09] MEDS: LR(*) 1000 ML BAG 1,000 ML IV PRN ×2 (04:43→11:24)
[2019-01-09] MEDS: MAGNESIUM SULF 20 GM/500 ML IV 500 ML IV SCH ×3 (05:23→20:32)
[2019-01-09] MEDS ORDERED: LIDOCAINE/PF 2% 200MG/10ML AMP 200 MG/10 ML AMPUL EPI PRN (06:55)
[2019-01-09] MEDS ORDERED: FENTANYL/ROPIVACAINE 100 ML BAG EPI PRN (06:55)
[2019-01-09] MEDS ORDERED: LIDO/EPI 2% MPF 1:200,000 20ML EPI PRN (06:55)
[2019-01-09] MEDS ORDERED: BUPIVACAINE 0.25% MPF INJ EPI PRN (06:55)
[2019-01-09] MEDS ORDERED: fentaNYL CITR 100 MCG/2 ML AMP IT PRN (06:55)
[2019-01-09] MEDS ORDERED: BUPIVACAINE 0.5% INJ 30ML VIAL EPI PRN (06:55)
[2019-01-09] MEDS ORDERED: ONDANSETRON 4 MG/2 ML VIAL ONE (07:16)
[2019-01-09] MEDS ORDERED: BUPIVACAINE 0.25% MPF INJ ONE (07:16)
[2019-01-09] MEDS ORDERED: fentaNYL CITR 100 MCG/2 ML AMP ONE (07:16)
[2019-01-09] MEDS ORDERED: FENTANYL/ROPIVACAINE 100ML BAG 100 ML ONE (07:17)
[2019-01-09] MEDS ORDERED: ePHEDrine 25 MG/5 ML DISP.SYR IVP ONE (07:23)
--- NOTE | 2019-01-09 08:01 | Labor Progress Note ---
Labor Subjective Progress Notes Subjective Pt requesting epidural at 0700 for pain. Feels them in her back and also some in her stomach. She still feels very weak, but headache is better with tylenol. Zofran is helping nausea. Reports continued leaking of fluid and good FM. Denies vision changes and RUQ pain. Feeling Movement?: Yes Vaginal Discharge/Fluid: Clear Fluid Labor Pain: Severe Neurological: Headache, Other (nausea and dry heaving) Eyes: No Visual Disturbances Labor Objective Vital Signs Vital Signs Date Time Temp Pulse Resp B/P (MAP) Pulse Ox O2 Delivery O2 Flow Rate FiO2 01/08/19 22:48 98.4 57 148/94 (112) Vaginal Discharge/Fluid?: Clear Fluid, Small Amount Cervical Dialation: 6 Cervical Effacement (%): 60 Cervical Consistency: Soft Cervical Position: Mid Station: 0 Presentation: Vertex Uterine Contractions(Q min): 2 Uterine Contraction Strength: Moderate UC Resting Tone: Soft Fetus Estimated Weight(grams): 3200 Heart Tones: 120 Heart Tone Variabilty: Moderate FHT Accelerations: Present FHT Decelerations: None FHT Category: I General Exam General Appearance: Alert/Awake/No Acute Distress, Afebrile ENT: Normal Neck: No Masses Cardiovascular: Normal Rhythm & Peripheral Pulses Respiratory: No Respiratory Distress, Clear to Auscultation Abdomen: Gravid - Non-Tender, RUQ Non-Tender : Normal Extremities: No Cyanosis,Clubbing or Edema, Reflexes (+2), Edema (trace pedal edema); No Clonus Integumentary: Skin Intact without Lesions or Rash Psychological: Alert & Oriented X3, Appropriate Mood & Affect Other Result Diagram: 01/08/19 1401 01/08/19 1401 Assessment and Plan Hospital Day: 2 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 at 36w1d wks with an Estimated Date of Delivery: 02/05/19 dated by LMP and first trimester US here today for IOL for Pre eclampsia with severe features Labor state: Active labor. Good cervical change in 4 hours and pt exhibiting good signs of active labor as requesting epidural. Difficulty staying still for epidural placement due to contractions so halved Pitocin, but plan to increase after placement titrating at 2mu/min and increasing every 15 minutes up until 30mu/mi. Once patient is comfortable plan to recheck cervix for position and place internals to better capture contractions and FHR.Continue position changes with peanut ball/pillow to encourage opening of pelvic outlet and descent. Encourage pt to rest. well-being: Category I FHT: baseline remains at 115-120 with moderate variability, positive accelerations with no decelerations. Continuous monitoring for high risk Maternal well-being: Mild range to normal BPs, afebrile, AROM @ 0332 for large clear fluid. Will continue to monitor BP very closely and treat as needed for > 160/110. Continue Magnesium sulfate IV for seizure prophylaxis and Tylenol for HERR if needed. Monitor for s/s of magnesium toxicity, repeat Pre E labs this am PNL: GBS neg, Type/Rh O+, rubella immune Pain Management: Requesting epidural now, once placement reports completely comfortable. Feed: Breast; part of nurse family partnership so a nurse will visit her in the hospital to help with c/b: * Social issues: Has a restraining order against FOB for DV, unemployed, but does have an apartment and help from friends * GHTN diagnosis last week with normal 24 hour urine and labs * PreEclampsia with severe features with diagnosis upon admit to L&D, P:C 1.10, other labs WNL Anticipate , re-evaluate in 2-3 hours or prn AKILAH GILES CNM January 09, 2019 08:01
--- NOTE | 2019-01-09 08:31 | Anesthesia OB Pre-Anes Eval ---
History of Present Illness Anesthesia Start Date: January 09, 2019 Anesthesia Start Time: 07:21 OB Anesthesia Diagnosis: gestational hypertension, induction - medical Current Complication: gestational hypertention, obesity EDC: Feb 05, 2019 : 1 Para: 0 Vital Signs: Vital Signs 01/08/19 22:48 Temp 98.4 Pulse 57 B/P (MAP) 148/94 (112) Pain Ratin Result Diagram: 01/08/19 1401 01/08/19 1401 Height (Inches): 64.00 Weight (Pounds): 205 BMI (kg/m2): 35.20 Past Medical History Medical History: obesity, asthma Surgical History: noncontributory Hx Anesthesia Reactions: No Hx Family Anesthesia Reaction: No Current Medications: magnesium sulfate, pitocin Past Complications: gestational hypertention, obesity Home Meds Active Scripts Butalb/Acetaminophen/Caff 50-325-40 Mg (FIORICET 50-325-40) 1 Each Tablet, 1-2 TAB PO Q6H PRN for HEADACHE, #30 TAB Prov:LEOPOLDO BENJAMIN DO 07/05/18 Reported Medications Acetaminophen (TYLENOL) 325 Mg Tablet, 325 MG PO, TAB 11/13/18 Bupropion Hcl (WELLBUTRIN SR) 150 Mg Tablet.er, 150 MG PO BID, TAB 03/05/18 Hydroxyzine Pamoate (HYDROXYZINE PAMOATE) 25 Mg Capsule, 25 MG PO BID PRN for ANXIETY, CAPSULE TAKE ONE TABLET (25 MG) UP TO TWICE A DAY NEEDED FOR ANXIETY 08/07/17 Discontinued Scripts Benzonatate 100 Mg Cap (TESSALON PERLE 100 MG CAP) 100 Mg Capsule, 100 MG PO TID for cough, #25 CAP 0 Refills Prov:AKILAH GILES CNM 10/07/18 Allergies: Coded Allergies: nickel (Verified Allergy, Mild, RASH, 07/05/18) fish derived (Verified Allergy, Unknown, 07/05/18) throat swelling Anesthesia OB ROS Neurological: No migraines/headaches, No seizures, No neuropathy, No other ENT: Denies Tooth caps, Denies Loose teeth, Denies Chipped teeth, Denies Dentures, Denies Bridges, Denies Retainers, Denies Veneers, Denies Implants, Denies Tongue ring, Denies Other Pulmonary: asthma Airway Class: lll Cardiovascular ROS: No edema, No arrhythmia, No other GI ROS: ice chips Last Solids Date: January 08, 2019 Last Solids Time: 17:00 ROS: No Herpes, No STD(s), No Liver Disease, No Renal Disease, No Other Musculoskeletal ROS: No low back pain, No low back injury, No scoliosis, No other ASA Classification: 3 Assessment and Plan Anesthesia Plan: REZA LAI CRNA January 09, 2019 08:31
--- NOTE | 2019-01-09 08:35 | Procedure Note ---
Anesthetic Placement Note Anesthesia Plan: CSE Permit for Anesthesia Signed: Yes Anesthesia Technique: Patient Sitting Anesthesia Prep: Chlorhexidine Interspace: L 3-4 Local Anesthetic: 1% Lidocaine Amount Local - cc's: 3 Anesthesia Needle: 17g Touhy/Schliff Anesthesia Attempts: 1 Loss of Resistance: Normal Saline Depth of AUDRA (cm): 5 Epidural Needle Placement: No CSF, No Blood, No Parasthesia Intrathecal Needle: 27 Gauge Pencan Cerebral Spinal Fluid: Yes, Clear Catheter Insertion (cm): 4 (9 cm @ kin) Catheter Type: Feliz - Spring Wound Epidural Dressing: Tegaderm, Tape Anesthesia Tray: Lot Number ([id number]), Expiration Date (04/15), Reference Number ([id number]) Anesthesia Medications: Intrathecal Dose: mcg Fentanyl (10), mg Marcaine MPF (2), Time (0738) Epidural Test Dose: 1.5 Lido/Epi (1:200,000), Dose - mL (3), Time (0740), Negative Epidural Infusion: 0.2% Ropivicaine, With Fentanyl 2mcg/ml, Start Time: (0752) Epidural Pump Setting: Bolus Dose - mL (8), Lockout - Minutes (30), Maintenance Rate - mL/hr (6), Maximum per Hour - mL (22) Complications: None REZA LESLIE CRNA January 09, 2019 08:35
[2019-01-09] MEDS ORDERED: buPROPion SR 150 MG TABCR PO SCH (09:00)
[2019-01-09 09:30] LABS: PLATELET COUNT, AUTOMATED 245 K/uL (150-450)
[2019-01-09] MEDS ORDERED: MAGNESIUM HYDROXIDE* 30ML UDCP PO PRN (10:25)
[2019-01-09] MEDS ORDERED: LANOLIN OINT 7 GM TUBE TP PRN (10:25)
[2019-01-09] MEDS ORDERED: BENZOCAINE 20% 60 ML BTL TP PRN (10:25)
[2019-01-09] MEDS ORDERED: GLYCERIN/WITCH HAZEL LEAF 1 PK TP PRN (10:25)
[2019-01-09] MEDS ORDERED: HYDROCORTISONE 2.5% CR 30GM TB PR PRN (10:25)
--- NOTE | 2019-01-09 10:41 | Anesthesia Progress Note ---
Progress/Maintenance Anesthesia Note Date: January 09, 2019 Anesthesia Note Time: 09:50 Pain Intensity: 7 Pump: On Pump Rate (ML/HR): 6 Sensory Level: pressure C&P Motor Level: Bending Knees-Bilateral Dilatation: 10 Position: Semi-Fowlers Drug Bolus: Other (Fentanyl 90 mcgs per epidural) Assessment and Plan Anesthesia Stop Day: January 09, 2019 Anesthesia Stop Time: 10:15 REZA LESLIE CRNA January 09, 2019 10:41
--- NOTE | 2019-01-09 11:11 | OB Delivery Note ---
Delivery Note Vaginal Delivery Type: Spont. Vaginal Delivery, Vacuum Delivery Date: January 09, 2019 Delivery Time: 09:55 Estimated Gestational Age(wks): 36.1 Delivery Anesthesia: Epidural Sex: Male Weight (gms): 2084 Apgars: 1 Minute, 5 Minute, 10 Minute Repair Needed: Laceration, Vaginal, Perineal, 2nd Degree Estimated Blood Loss: 300 Delivery Complications: Laceration Notes: Pt was admitted to the family care unit on 01/08/19 from clinic at 1300 for IOL with Cytotec and Pitocin for Preeclampsia with severe features at 36 0/7. Pt was started on Magnesium sulfate for seizure prophylaxis and given one dose of Procardia for severe range pressures. BP remained mild range to normal throughout labor. OB worked in collaboration with CNM for Preeclampsia management. P:C 1.10, all other labs normal. Cervical exam on admission was FT/30/-2. She had AROM on 01/09/19 at 0332 for large clear fluid. Pt was GBS neg. FHR CAT I primarily throughout first stage. Pt utilized continuous lumbar epidural primarily for pain management. Pt was completely dilated on 01/09/19 at 0937 and pt began pushing spontaneously shortly after. Ped was present at start of pushing. FHT were noted to be in the 70's after pushing began, so Dr. Akhtar was called to be present for evaluation for vacuum assist. At 0955 pt had a VAVB of live male infant with APGARS 4/6/7, weighing 4lbs 9.5oz, 2084g. The head delivered spontaneously in the direct OA position with no nuchal cord. The anterior shoulder was delivered a traumatically and the posterior shoulder followed. Body delivered easily. Face was wiped and then placed on the maternal abdomen. The was dried and stimulated and noted to have no spontaneous cry and no spontaneous movement of all 4 extremities. Cord was clamped X 2 immediately after and cut by CNM for baby to be brought to the warmer to be assessed by the rn burn. Mother was in SF position. At 0956 the placenta and membranes delivered spontaneous and intact with a 3 vessel cord after gentle downward traction. 30 units of Pitocin was placed in 500cc IV to firm the uterus and started immediately after placenta delivery. Upon inspection of the perineum a second degree laceration was noted and repaired using 2.0 Vicryl under ARPAN by . Hemostasis observed.EBL 300 with fundus firm with minimal bleeding. Mom was left in stable condition and baby is in the nursery on Vapotherm and IVF. "I personally examined the patient and there are no unintended foreign objects in the vagina, and all sponge, lap and needle counts were correct." Akilah Wang CNM was present throughout the entire delivery as well as Dr. Aline Akhtar who performed the vacuum assisted delivery. Agricultural Production Engineer in Attendence: Yes AKILAH WANG CNM January 09, 2019 11:11
[2019-01-09] MEDS: IBUPROFEN 800 MG TAB PO SCH ×2 (11:24→18:58)
--- NOTE | 2019-01-09 11:39 | OB Delivery Note ---
Delivery Note Vaginal Delivery Type: Vacuum Delivery Date: January 09, 2019 Delivery Time: 09:55 Estimated Gestational Age(wks): 36.1 Labor Stage III (minutes): 1 Delivery Anesthesia: Epidural Infant Sex: Male Infant Weight (gms): 2084 Apgars: 1 Minute (4), 5 Minute (6), 10 Minute (7) Repair Needed: 2nd Degree Estimated Blood Loss: 300 Notes: Vacuum assisted delivery due to persistent bradycardia. Laboratory Animal Facility Supervisor in Attendence: Yes ROLANDA SWEET MD January 09, 2019 11:39
--- NOTE | 2019-01-09 13:17 | DELIVERY NOTE ---
DELIVERY DATE: January 09, 2019 SURGEON: Aline Akhtar MD ANESTHESIA: Epidural by Felipa Trujillo CRNA PREOPERATIVE DIAGNOSES 1. Intrauterine at 36 weeks and 1 day with preeclampsia with severe features. 2. Persistent bradycardia. POSTOPERATIVE DIAGNOSIS 1. Intrauterine at 36 weeks and 1 day with preeclampsia with severe features. 2. Persistent bradycardia 3. Delivery of a viable male infant at 0955 hours, weighing 2084 grams with Apgars of 4 at one minute, 6 at five minutes and 7 at ten minutes. PROCEDURE Vacuum-assisted vaginal delivery. ESTIMATED BLOOD LOSS 300 cc. INDICATIONS This patient is a 23-year-old 1, para 0 who presented for an induction of labor due to preeclampsia with severe features at 36 weeks and 0 days. She was started on magnesium sulfate for seizure prophylaxis and required one dose of Procardia to decrease her blood pressures from the severe range. She was administered Cytotec for cervical ripening, after which time she also had an amniotomy with return of clear fluid. She was then started Pitocin and progressed to complete at 0937 hours. She initiated pushing with Jayshree Wang CNM. However, as she continued to push she developed bradycardia into the 60 beats/minute. This remained down for a total of eight minutes. During this prolonged deceleration, I was called to the room and the patient was noted to be pushing and the vertex was nearly . I then consented the patient for a vacuum-assisted vaginal delivery in order to expedite delivery due to persistent bradycardia. The patient did elect to proceed. PROCEDURE As noted above, the patient was already pushing and in the dorsal lithotomy position. The patient was verbally consented for a vacuum-assisted vaginal delivery due to persistent bradycardia in the 60s. The Kiwi vacuum was assembled and applied to the 's vertex. Vacuum was initiated to the green level on the indicator. At this time, the patient was able to push and gentle traction was placed on the vacuum. With this single push, the 's vertex was able to be completely delivered. The vacuum was released and removed. The 's vertex was noted to be in the direct OA position. A nuchal cord was checked but not noted. The anterior shoulders delivered easily followed by the posterior shoulder. The remainder of the body was easily delivered. At this time, the infant was noted to be quite floppy and did not have initial spontaneous cry. Therefore, I stimulated and dried the while Jayshree Wang CNM, clamped the cord and cut it. The infant was handed immediately to the facility assistant, who took the baby to the warmer. At this time, Pitocin was started through the IV fluid to help firm the uterus. The placenta delivered spontaneously almost immediately at 0956 hours and was intact. The uterus was clamping down nicely. Evaluation of the cervix, vaginal vault and perineum revealed a second-degree midline laceration, which was repaired using a 2-0 Vicryl in the normal fashion. Hemostasis was assured. The patient tolerated this procedure well and recovered in Labor and Delivery. The baby went to the nursery for evaluation and resuscitation with Dr. Coats. All sponge and needle counts were correct at the end of this procedure. MARYCHUY
[2019-01-09] MEDS: APAP/HYDROCODONE 325/5 TAB PO PRN ×2 (17:05→20:15)
[2019-01-09] MEDS ORDERED: CALCIUM GLUC 10% 100 MG/ML VL ONE (19:00)
[2019-01-09] MEDS: DOCUSATE CALCIUM 240 MG CAP PO SCH (21:00)
[2019-01-09] MEDS ORDERED: OXYTOCIN 10 UNIT/ML SDV IM ONE (21:15)
[2019-01-09] MEDS ORDERED: OXYTOCIN 10 UNIT/ML SDV ONE (21:24)
[2019-01-09] MEDS ORDERED: LR(*) 1000 ML BAG 1,000 ML IV PRN (22:17)
[2019-01-10] VITALS (13 sets, daily range): BP systolic 110–135; BP diastolic 67–92
[2019-01-10] MEDS: IBUPROFEN 800 MG TAB PO SCH ×3 (03:30→18:24)
[2019-01-10] MEDS ORDERED: MAGNESIUM SULF 20 GM/500 ML IV 500 ML IV SCH (07:38)
[2019-01-10] MEDS: DOCUSATE CALCIUM 240 MG CAP PO SCH ×2 (07:48→21:00)
[2019-01-10] MEDS: APAP/HYDROCODONE 325/5 TAB PO PRN ×2 (07:48→14:56)
--- NOTE | 2019-01-10 11:29 | OB/GYN Progress Note ---
OB Subjective Progress Notes Subjective Pt is feeling a little better this am. She denies SOB, but still just feels very weak and tired. Her baby was brought into the room around 1 am so that is making her very happy. She is having some "all over" pain and has one lortab this am with good relief. She denies HERR, but still has blurry vision. She has been able to pump colostrum for baby. GI: POS Flatus; NEG Nausea, NEG Vomiting : Voiding Well (Good shea output) Pain: Moderate, Tolerating PO Pain Meds Neurological: No Headache Eyes: Other (blurry vision) OB Objective Physical Exam Vital Signs Date Time Temp Pulse Resp B/P (MAP) Pulse Ox O2 Delivery O2 Flow Rate FiO2 01/10/19 11:08 98.0 94 16 123/85 (98) 97 Room Air 01/10/19 05:05 0.5 Intake and Output 01/10/19 07:00 Intake Total 3900 ml Output Total 2396 ml Balance 1504 ml Intake IV Total 3900 ml Output Urine Total 2396 ml # Voids 1 General Appearance: Alert/Awake/No Acute Distress, Afebrile Neurological: No Gross deficits Eyes: Normal Extraocular Movement & Vison, PERRLA ENT: Normal Neck: No Masses Cardiovascular: Normal Rhythm & Peripheral Pulses Respiratory: No Respiratory Distress, Clear to Auscultation Abdomen: Soft, Non-Tender, Non-Distended, Fundus Firm, Bowel Sounds Present Incision: Other (laceration healing well with good approximation and no s welling) : Normal Musculoskeletal: No Weakness/Pain Extremities: No Cyanosis,Clubbing or Edema, Reflexes (+1), Edema (trace pedal edema); No Clonus Integumentary: Skin Intact without Lesions or Rash Psychological: Alert & Oriented X3, Appropriate Mood & Affect Result Diagram: 01/10/1944401/10/19444 Assessment and Plan Hospital Day: 3 PROGRAM MANAGEMENT PROFESSIONAL Assessment: Stable PROGRAM MANAGEMENT PROFESSIONAL Plan: Routine Post- Care, Advance Diet, Advance Activity Problems: (1) Pre-eclampsia in third trimester Onset Date: ~ 01/08/2019 Status: Resolved (2) Status post vacuum-assisted vaginal delivery Status: Resolved (3) Second degree laceration of perineum, delivered, current hospitalization Onset Date: ~ 01/09/2019 Status: Acute Assessment & Plan: Encouraged gentle wiping when she starts to void, chirag bottle, and dermaplast. Will review s/s of infection, dehiscence,and proper healing when discharged. (4) care and examination immediately after delivery Onset Date: ~ 01/09/2019 Status: Acute Assessment & Plan: Pt is s/p VAVD day # 1. Today the magnesium prophylaxis will be discontinued and Shea once pt is up and walking. She has had minimal bleeding since the 700cc blood loss last damaris. Her fundus has been firm 1<U. Her pain is well controlled with the Lortab and ibuprofen. Will continue to encourage pumping to stimulate her breasts and to give baby colostrum. Her BP has been mild range and will plan to treat severe range with Procardia XL. AKILAH GILES CNM January 10, 2019 11:29
--- NOTE | 2019-01-10 16:36 | Anesthesia Post Eval Note ---
Anesthesia Post Eval Note Vital Signs 01/10/19 01/10/19 05:05 14:45 Temp 97.4 Pulse 101 Resp 18 B/P (MAP) 110/67 (81) Pulse Ox 95 O2 Delivery Room Air O2 Flow Rate 0.5 Pt able to participate in Eval: Yes Cardiovascular Status: Satisfactory Respiratory Status: Satisfactory Pain Managment: Satisfactory PO Nausea/Vomiting: Satisfactory Temperature Management: Satisfactory Mental Status: Satisfactory, Alert, Oriented X3 Post-Op Hydration Status: Satisfactory, Tolerating PO Well, Voiding w/o Difficulty Anesthesia Tolerance: remains on magnesium REZA LESLIE CRNA January 10, 2019 16:36
[2019-01-11 00:01] VITALS: BP_SYST 91
[2019-01-11] MEDS: IBUPROFEN 800 MG TAB PO SCH ×3 (02:30→18:54)
[2019-01-11 04:45] VITALS: BP 127/76
[2019-01-11 07:30] VITALS: BP 126/78
[2019-01-11] MEDS: DOCUSATE CALCIUM 240 MG CAP PO SCH ×2 (08:55→20:28)
[2019-01-11] MEDS ORDERED: buPROPion SR 150 MG TABCR PO ONE (09:00)
--- NOTE | 2019-01-11 10:32 | OB/GYN Progress Note ---
OB Subjective Progress Notes Subjective Pt is s/p VAVD on 01/09/19 for a male infant. Pt is feeling so much better today. Her mag was discontinued yesterday about 10 am and she progressed to getting up OOB in the afternoon with some encouragement. She is voiding well and passing gas. She had been refusing her Wellbutrin, but did report she took it today. She denies significant anxiety/depression, but she has a history of Bipolar depression, so she knows to monitoring that closely. She has not had counseling since she has been , but her mood has been stable. She is a part of [employer] so she has already seen Tanya in the hospital. She is happy that many friend have visited so she does not feel lonely. She will try and see of she can get a breastpump from , as her medicaid would not cover one. She has been pumping well without difficulty and denies breast or nipple pain. She has a mild HERR today, but nothing like when she came in for induction. She denies vision changes or RUQ pain. Her perineal/cramping pain is minimal and is controlled with ibuprofen. GI: POS Flatus; NEG Nausea, NEG Vomiting, NEG Bowel Movement : Vaginal Bleeding, Scant Pain: Mild, Tolerating PO Pain Meds Neurological: Headache (very mild) Eyes: No Visual Disturbances OB Objective Physical Exam Vital Signs Date Time Temp Pulse Resp B/P (MAP) Pulse Ox O2 Delivery O2 Flow Rate FiO2 01/11/19 07:30 98.2 81 18 126/78 (94) 95 Room Air 01/10/19 05:05 0.5 Intake and Output 01/11/19 06:59 Intake Total 1151 ml Output Total 3160 ml Balance -2009 ml Intake Oral 800 ml IV Total 351 ml Output Urine Total 3160 ml General Appearance: Alert/Awake/No Acute Distress, Afebrile Neurological: No Gross deficits Eyes: Normal Extraocular Movement & Vison, PERRLA ENT: Normal Neck: No Masses Cardiovascular: Normal Rhythm & Peripheral Pulses Respiratory: No Respiratory Distress, Clear to Auscultation Abdomen: Soft, Non-Tender, Non-Distended, Fundus Firm (2< U), Bowel Sounds Present Incision: Other (laceration healing well with good approximation and no swelling) : Normal Musculoskeletal: No Weakness/Pain Extremities: No Cyanosis,Clubbing or Edema, Reflexes (+1), Edema (trace pedal edema); No Clonus Integumentary: Skin Intact without Lesions or Rash Psychological: Alert & Oriented X3, Appropriate Mood & Affect Result Diagram: 01/10/1944401/10/19444 Assessment and Plan Hospital Day: 2 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 Use ibuprofen for pain as needed. Will review s/s of infection, dehiscence,and proper healing when discharged. (4) care and examination immediately after delivery Onset Date: ~ 01/09/2019 Status: Acute Assessment & Plan: Pt is s/p VAVD day # 1. Magnesium prophylaxis was discontinued yesterday at 10 am and she is up ambulating and voiding well. She has had minimal bleeding without clots. Her fundus has been firm 2 <U. Her pain is well controlled with ibuprofen. Will continue to encourage pumping to stimulate her breasts and to give baby colostrum and skin to skin when she is able. Her BP has been mild range to normal. Will have her return in 1 week to clinic for a BP check. We discussed the importance of taking her Wellbutrin everyday and her higher risk for PPD. I encouraged her to reach out to friends for help as she lives alone. Her Dad will be here for a few days next week. Her friend Marcelle will stay with her for a few days when she goes home, but she does not have a consistent support system. Will also put in a referral for Dr. Turk, whom she saw before she was and encourage counseling for her Bipolar. Tanya will also be a good support for her and baby too. Plan for discharge tomorrow, but mostly likely will room in with baby as he will probably stay a few more days for feeding and growing AKILAH GILES CNM January 11, 2019 10:32
[2019-01-11 12:00] VITALS: BP 151/82
[2019-01-11] MEDS: APAP/HYDROCODONE 325/5 TAB PO PRN (13:00)
[2019-01-11] MEDS ORDERED: IBUP800T37 PO (14:17)
[2019-01-11 16:15] VITALS: BP 125/91
[2019-01-11 20:00] VITALS: BP 128/83
[2019-01-12 00:06] VITALS: BP 133/88
[2019-01-12] MEDS: IBUPROFEN 800 MG TAB PO SCH ×3 (02:24→18:19)
[2019-01-12 07:37] VITALS: BP 123/93
--- NOTE | 2019-01-12 08:06 | OB/GYN Progress Note ---
OB Subjective Progress Notes Subjective Doing well. Pain controlled with oral medications. Tolerating regular diet. Ambulating. Voiding. Normal lochia. No preeclampsia symptoms. Baby is not latching well, but she is pumping a lot of milk and able to feed baby that milk with a bottle. [facility] is already involved. OB Objective Physical Exam Vital Signs Date Time Temp Pulse Resp B/P (MAP) Pulse Ox O2 Delivery O2 Flow Rate FiO2 01/12/19 07:37 97.8 89 16 123/93 (103) Room Air 01/11/19 07:30 95 01/10/19 05:05 0.5 Intake and Output 01/12/19 07:00 Intake Total 1060 ml Output Total 200 ml Balance 860 ml Intake Oral 1060 ml Output Urine Total 200 ml # Voids 3 General Appearance: Alert/Awake/No Acute Distress Neurological: No Gross deficits Eyes: Normal Extraocular Movement & Vison Cardiovascular: Normal Rhythm & Peripheral Pulses Respiratory: No Respiratory Distress, Clear to Auscultation Abdomen: Soft, Non-Tender, Non-Distended, Fundus Firm Musculoskeletal: No Weakness/Pain Integumentary: Skin Intact without Lesions or Rash Psychological: Alert & Oriented X3, Appropriate Mood & Affect Result Diagram: 01/10/1944401/10/19444 Assessment and Plan Problems: (1) care and examination immediately after delivery Onset Date: ~ 01/09/2019 Status: Acute Assessment & Plan: PPD#3 s/p VAVD for persistent bradycardia. She is doing well. She is having troubles with baby latching but has managed to pump and feed with a bottle. She has assistance set up for when she goes home. Desires discharge to home today. Discussed routine expec tations. Questions answered. Follow up in clinic in 1 week for BP check and visit. (2) Pre-eclampsia in third trimester Onset Date: ~ 01/08/2019 Status: Resolved Assessment & Plan: Pt had severe features due to BP. Since delivery, she was given 24hr magnesium recovery and has not had any severe BP. She is discharged without medication. Discussed preeclampsia precautions. BP check within the next week. (3) Status post vacuum-assisted vaginal delivery Status: Resolved (4) Second degree laceration of perineum, delivered, current hospitalization Onset Date: ~ 01/09/2019 Status: Acute ROLANDA SWEET MD January 12, 2019 08:06
[2019-01-12] MEDS ORDERED: LOR5/325 PO (08:10)
--- NOTE | 2019-01-12 08:11 | OB/GYN Discharge Summary ---
Discharge Summary Reason for Hosp/Final Diag: (1) care and examination immediately after delivery Onset Date: ~ 01/09/2019 Status: Acute Hospital Course & Plan: PPD#3 s/p VAVD for persistent bradycardia. She is doing well. She is having troubles with baby latching but has managed to pump and feed with a bottle. She has assistance set up for when she goes home. Desires discharge to home today. Discussed routine expectations. Questions answered. Follow up in clinic in 1 week for BP check and visit. (2) Pre-eclampsia in third trimester Onset Date: ~ 01/08/2019 Status: Resolved Hospital Course & Plan: Pt had severe features due to BP. Since delivery, she was given 24hr magnesium recovery and has not had any severe BP. She is discharged without medication. Discussed preeclampsia precautions. BP check within the next week. (3) Status post vacuum-assisted vaginal delivery Status: Resolved (4) Second degree laceration of perineum, delivered, current hospitalization Onset Date: ~ 01/09/2019 Status: Acute Lates Vital Signs Vital Signs Date Time Temp Pulse Resp B/P (MAP) Pulse Ox O2 Delivery O2 Flow Rate FiO2 01/12/19 07:37 97.8 89 16 123/93 (103) Room Air 01/11/19 07:30 95 01/10/19 05:05 0.5 Weight (Pounds): 205 Result Diagram: 01/10/19 0445 01/10/19 0445 Condition: Improved Discharge: Home, Self Fdc Meds Active Scripts Hydrocodone Bit/Acetaminophen (HYDROCODON-ACETAMINOPHEN 5-325) 1 Each Tablet, 1 EACH PO Q6H PRN for pain, #15 TAB 0 Refills Prov:ROLANDA SWEET MD 01/12/19 Butalb/Acetaminophen/Caff 50-325-40 Mg (FIORICET 50-325-40) 1 Each Tablet, 1-2 TAB PO Q6H PRN for HEADACHE, #30 TAB Prov:LEOPOLDO BENJAMIN DO 07/05/18 Reported Medications Acetaminophen (TYLENOL) 325 Mg Tablet, 325 MG PO, TAB 11/13/18 Bupropion Hcl (WELLBUTRIN SR) 150 Mg Tablet.er, 150 MG PO BID, TAB 03/05/18 Hydroxyzine Pamoate (HYDROXYZINE PAMOATE) 25 Mg Capsule, 25 MG PO BID PRN for ANXIETY, CAPSULE TAKE ONE TABLET (25 MG) UP TO TWICE A DAY NEEDED FOR ANXIETY 08/07/17 Discontinued Scripts Benzonatate 100 Mg Cap (TESSALON PERLE 100 MG CAP) 100 Mg Capsule, 100 MG PO TID for cough, #25 CAP 0 Refills Prov:AKILAH GILES CNM 10/07/18 Follow up Referrals: ADMINISTRATIVE ASST @ [facility] with AKILAH GILES CNM Psychiatry with OLAMIDE REYES MD Follow up in: 5-7 days Discharge Diet: As Tolerates Discharge Activity: Pelvic Rest ROLANDA SWEET MD January 12, 2019 08:11
[2019-01-12] MEDS: DOCUSATE CALCIUM 240 MG CAP PO SCH (09:03)
[2019-01-12] MEDS: APAP/HYDROCODONE 325/5 TAB PO PRN (09:15)
[2019-01-12] MEDS ORDERED: buPROPion SR 150 MG TABCR PO ONE (10:25)
[2019-01-12 15:40] VITALS: BP 131/86
[2019-01-13] MEDS ORDERED: buPROPion SR 150 MG TABCR PO SCH (09:00)
== END 2019-01-12 19:04 | disposition home or self-care (01) | DRG 807 ==
LOC: OB 12:53
PROVIDERS: ADMIT Obstetrics & Gynecology; ATTEND Obstetrics & Gynecology
PROC: 10907ZC Drainage of Amniotic Fluid, Therapeutic from Products of Conception, Via Natural or Artificial Opening (ICD-10-PCS; 2019-01-08)
PROC: 3E0P7VZ Introduction of Hormone into Female Reproductive, Via Natural or Artificial Opening (ICD-10-PCS; 2019-01-08)
PROC: 10D07Z6 Extraction of Products of Conception, Vacuum, Via Natural or Artificial Opening (ICD-10-PCS; principal; 2019-01-09)
PROC: 0KQM0ZZ Repair Perineum Muscle, Open Approach (ICD-10-PCS; 2019-01-09)
DX: O14.14 Severe pre-eclampsia complicating childbirth (principal); Z37.0 Single live birth; O76 Abnormality in fetal heart rate and rhythm complicating labor and delivery; O70.1 Second degree perineal laceration during delivery; F31.9 Bipolar disorder, unspecified; O99.343 Other mental disorders complicating pregnancy, third trimester; Z3A.36 36 weeks gestation of pregnancy; Z91.410 Personal history of adult physical and sexual abuse
CPT/HCPCS: 36415; 81001; 82040; 82247; 82310; 82374; 82435; 82565; 82570; 82947; 83735; 84075; 84132; 84155; 84156; 84295; 84450; 84460; 84520; 84550; 85025; 85027; 86850; 86900; 86901; 87077; 87088; 87186; J2405; J2550; J2590; J3010; J3475; J7120; S0020

== ENCOUNTER 2019-01-24 22:30 | Emergency (ER) | payer MEDICAID ==
[2019-01-08 22:48] VITALS: Wt 90.7 kg
[~2019-01-24 22:30] MED LIST changes: +IBUP800T37 PO; -TRAZ50TA34 PO; +TRAZ50TA52 PO
--- NOTE | 2019-01-24 23:09 | ER Report ---
History and Physical Time Seen By : 23:09 HPI/ROS CHIEF COMPLAINT: Headache HISTORY OF PRESENT ILLNESS: 23-year-old female 2 weeks , emergent C- section for gestational hypertension now with headache. Patient does have a history of migraine headaches. 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 The concern is for potential post-eclampsia symptoms. On arrival, patient's blood pressure looks okay. Patient's complaining of a headache that sounds more migrainous than eclamptic. Patient denies fever, chills or photophobia. Patient denies stiff neck. REVIEW OF SYSTEMS: Respiratory: No cough, no dyspnea. Cardiovascular: No chest pain, no palpitations. Gastrointestinal: No vomiting, no abdominal pain. Musculoskeletal: No back pain. Allergies: Coded Allergies: nickel (Verified Allergy, Mild, RASH, 01/24/19) fish derived (Verified Allergy, Unknown, 01/24/19) throat swelling Home Meds Active Scripts Ondansetron Hcl (ZOFRAN) 4 Mg Tablet, 4 MG PO Q6H PRN for NAUSEA/VOMITING, #10 Prov:MIKE ZAPATA DO 01/25/19 Reported Medications Bupropion Hcl (WELLBUTRIN SR) 150 Mg Tablet.er, 150 MG PO BID, TAB 03/05/18 Discontinued Reported Medications Hydroxyzine Pamoate (HYDROXYZINE PAMOATE) 25 Mg Capsule, 25 MG PO BID PRN for ANXIETY, CAPSULE TAKE ONE TABLET (25 MG) UP TO TWICE A DAY NEEDED FOR ANXIETY 08/07/17 Discontinued Scripts Hydrocodone Bit/Acetaminophen (HYDROCODON-ACETAMINOPHEN 5-325) 1 Each Tablet, 1 EACH PO Q6H PRN for pain, #15 TAB 0 Refills Prov:ROLANDA SWEET MD 01/12/19 Ibuprofen (IBUPROFEN) 800 Mg Tablet, 800 MG PO Q8H@0230,1030,1830, #20 TAB Prov:AKILAH GILES CNM 01/11/19 Reviewed Nurses Notes: Yes Old Medical Records Reviewed: Yes Hx Smoking: No Smoking Status: Never Smoker Exposure to Second Hand Smoke?: No Hx Substance Use Disorder: No Hx Alcohol Use: No Constitutional Vital Sign - Last 24 Hours 01/24/19 01/24/19 01/24/19 01/24/19 22:46 22:47 23:00 23:15 Temp 100.3 Pulse 122 112 113 Resp 16 B/P (MAP) 134/93 (107) 134/93 Pulse Ox 94 95 94 O2 Delivery Room Air 01/24/19 01/24/19 01/24/19 01/25/19 23:30 23:45 23:50 00:05 Pulse 108 105 107 107 Pulse Ox 96 96 95 84 01/25/19 01/25/19 01/25/19 01/25/19 00:20 00:35 00:50 01:05 Pulse 97 92 89 95 Pulse Ox 98 97 99 99 01/25/19 01:07 B/P (MAP) 123/78 (93) Physical Exam General Appearance: The patient is alert, has no immediate need for airway protection and no current signs of toxicity. Vital signs stable, afebrile, pulse ox normal HEENT: Pupils equal and round no injection. TMs normal, oropharynx without erythema or exudate Respiratory: Chest is non tender, lungs are clear to auscultation. Cardiac: regular rate and rhythm, no murmur Gastrointestinal: Abdomen is soft and non tender, no masses, bowel sounds normal. Musculoskeletal: Neck: Neck is supple and non tender. Extremities have full range of motion and are non tender. Skin: No rashes or lesions. DIFFERENTIAL DIAGNOSIS: After history and physical exam differential diagnosis was considered for headache including but not limited to subarachnoid hemorrhage, migraine headache, tension headache and infectious causes such as meningitis, pre-eclampsia/post eclampsia pharyngitis and sinusitis. Medical Decision Making Data Points Result Diagram: 01/24/19 2322 01/24/19 2322 Laboratory Hematology Test 01/24/19 23:22 Red Blood Count 3.41 M/uL (4.17-5.56) Mean Corpuscular Volume 92.7 fL (80.0-96.0) Mean Corpuscular Hemoglobin 31.4 pg (26.0-33.0) Mean Corpuscular Hemoglobin Concent 33.8 g/dL (32.0-36.0) Red Cell Distribution Width 14.4 % (11.5-14.5) Mean Platelet Volume 7.8 fL (7.2-11.1) Neutrophils (%) (Auto) 46.6 % (39.4-72.5) Lymphocytes (%) (Auto) 43.3 % (17.6-49.6) Monocytes (%) (Auto) 7.0 % (4.1-12.4) Eosinophils (%) (Auto) 2.1 % (0.4-6.7) Basophils (%) (Auto) 1.0 % (0.3-1.4) Nucleated RBC Relative Count (auto) 0.0 /100WBC Neutrophils # (Auto) 3.7 K/uL (2.0-7.4) Lymphocytes # (Auto) 3.4 K/uL (1.3-3.6) Monocytes # (Auto) 0.6 K/uL (0.3-1.0) Eosinophils # (Auto) 0.2 K/uL (0.0-0.5) Basophils # (Auto) 0.1 K/uL (0.0-0.1) Nucleated RBC Absolute Count (auto) 0.00 K/uL Erythrocyte Sedimentation Rate 35 mm/HOUR (0-20) Sodium Level 140 mmol/L (137-145) Potassium Level 3.7 mmol/L (3.5-5.0) Chloride Level 107 mmol/L (98-107) Carbon Dioxide Level 23 mmol/L (22-31) Blood Urea Nitrogen 12 mg/dl (7-18) Creatinine 0.70 mg/dl (0.52-1.04) Glomerular Filtration Rate Calc > 60.0 Random Glucose 99 mg/dl (75-110) Calcium Level 8.6 mg/dl (8.4-10.2) Total Bilirubin < 0.1 mg/dl (0.2-1.3) Aspartate Amino Transf (AST/SGOT) 19 U/L (0-35) Alanine Aminotransferase (ALT/SGPT) 26 U/L (0-56) Alkaline Phosphatase 161 U/L (0-126) C-Reactive Protein < 0.5 mg/dl (<1.0) Total Protein 6.8 g/dl (6.3-8.2) Albumin 3.7 g/dl (3.5-5.0) Chemistry Test 01/24/19 23:22 White Blood Count 7.9 k/uL (4.5-11.0) Red Blood Count 3.41 M/uL (4.17-5.56) Hemoglobin 10.7 g/dL (12.0-16.0) Hematocrit 31.6 % (34.0-47.0) Mean Corpuscular Volume 92.7 fL (80.0-96.0) Mean Corpuscular Hemoglobin 31.4 pg (26.0-33.0) Mean Corpuscular Hemoglobin Concent 33.8 g/dL (32.0-36.0) Red Cell Distribution Width 14.4 % (11.5-14.5) Platelet Count 511 K/uL (150-450) Mean Platelet Volume 7.8 fL (7.2-11.1) Neutrophils (%) (Auto) 46.6 % (39.4-72.5) Lymphocytes (%) (Auto) 43.3 % (17.6-49.6) Monocytes (%) (Auto) 7.0 % (4.1-12.4) Eosinophils (%) (Auto) 2.1 % (0.4-6.7) Basophils (%) (Auto) 1.0 % (0.3-1.4) Nucleated RBC Relative Count (auto) 0.0 /100WBC Neutrophils # (Auto) 3.7 K/uL (2.0-7.4) Lymphocytes # (Auto) 3.4 K/uL (1.3-3.6) Monocytes # (Auto) 0.6 K/uL (0.3-1.0) Eosinophils # (Auto) 0.2 K/uL (0.0-0.5) Basophils # (Auto) 0.1 K/uL (0.0-0.1) Nucleated RBC Absolute Count (auto) 0.00 K/uL Erythrocyte Sedimentation Rate 35 mm/HOUR (0-20) Glomerular Filtration Rate Calc > 60.0 Calcium Level 8.6 mg/dl (8.4-10.2) Total Bilirubin < 0.1 mg/dl (0.2-1.3) Aspartate Amino Transf (AST/SGOT) 19 U/L (0-35) Alanine Aminotransferase (ALT/SGPT) 26 U/L (0-56) Alkaline Phosphatase 161 U/L (0-126) C-Reactive Protein < 0.5 mg/dl (<1.0) Total Protein 6.8 g/dl (6.3-8.2) Albumin 3.7 g/dl (3.5-5.0) ED Course/Re-evaluation Clinical Indication for ER IV: Hydration, IV Access ED Course Patient was minute to an examination room. H&P was done. The differential diagnoses was considered. Patient with an acute headache. It sounds more migrainous, then post eclamptic. Her blood pressures fine on arrival here. Diagnostic studies were unremarkable except for a mildly elevated sedimentation rate of 35, questionable significance status post delivery. Patient was treated with IV fluids, Toradol, Zofran and fentanyl. She feels much better. She is discharged home and advised to follow-up with her RETAIL WAREHOUSE ASSOCIATE. Decision to Disposition Date: Jan 25, 2019 Decision to Disposition Time: 00:54 Depart Departure Latest Vital Signs Vital Signs Date Time Temp Pulse Resp B/P (MAP) Pulse Ox O2 Delivery O2 Flow Rate FiO2 01/25/19 01:07 123/78 (93) 01/25/19 01:05 95 99 01/24/19 22:47 100.3 16 Room Air Impression: Primary Impression: Headache Additional Impressions: state Gestational hypertension Condition: Improved Disposition: HOME OR SELF-CARE Referrals: AKILAH GILES CNM (PCP) New Scripts Ondansetron Hcl (ZOFRAN) 4 Mg Tablet 4 MG PO Q6H PRN for NAUSEA/VOMITING, #10 Prov: MIKE ZAPATA DO 01/25/19 Patient Instructions: Acute Headache (ED) Additional Instructions: Follow-up with your RETAIL WAREHOUSE ASSOCIATE if unimproved on Sunday or Sunday Problem Qualifiers Primary Impression: Headache Headache type: unspecified Headache chronicity pattern: acute headache Intractability: not intractable Qualified Codes: R51 - Headache Additional Impressions: Gestational hypertension Trimester: third trimester Qualified Codes: O13.3 - Gestational [-induced] hypertension without significant proteinuria, third trimester MIKE ZAPATA DO January 24, 2019 23:09
[2019-01-24] MEDS ORDERED: NS(*) 0.9% 1000 ML BAG 1,000 ML IV ONE (23:12)
[2019-01-24] MEDS ORDERED: ONDANSETRON 4 MG/2 ML VIAL IVP ONE (23:15)
[2019-01-24] MEDS ORDERED: KETOROLAC 30 MG/ML VIAL IVP ONE (23:15)
[2019-01-24] MEDS ORDERED: fentaNYL CITR 100 MCG/2 ML AMP IVP ONE (23:15)
[2019-01-24 23:33] LABS: PLATELET COUNT, AUTOMATED 511 K/uL (150-450)
[2019-01-25] MEDS ORDERED: LR IV ONE (00:10)
[2019-01-25] MEDS ORDERED: ONDANSETRON 4 MG ODT TH SL ONE (00:55)
[2019-01-25] MEDS ORDERED: ONDA4TAB97 PO (00:57)
[2019-01-25 01:07] VITALS: BP 123/78
[2019-01-27] MEDS ORDERED: BUTA1TAB14 PO (16:01)
[2019-01-27] MEDS ORDERED: HYDR25CA13 PO (16:01)
[2019-01-27] MEDS ORDERED: BUPR-126 PO (16:01)
== END 2019-01-25 01:13 | disposition home or self-care (01) ==
LOC: ER 23:10
DX: R51 Headache (principal); O16.5 Unspecified maternal hypertension, complicating the puerperium
CPT/HCPCS: 85025; 85651; 86140; 96361; 96374; 96375; 99284; J1885; J2405; J3010; J7030; J7120; S0119; 82040; 82247; 82310; 82374; 82435; 82565; 82947; 84075; 84132; 84155; 84295; 84450; 84460; 84520

== ENCOUNTER 2019-03-17 19:26 | Emergency (ER) | payer SELFPAY ==
[2019-01-08 22:48] VITALS: Wt 74.8 kg
--- NOTE | 2019-03-17 20:45 | ER Report ---
History and Physical Time Seen By MD: 20:41 Hx. of Stated Complaint: HIVES ON HANDS AND ARMS THAT STARTED LAST NIGHT. TAKEN 3 BENADRYL SO FAR. DOESN'T KNOW WHAT IS CAUSING IT HPI/ROS CHIEF COMPLAINT: rash on arms HISTORY OF PRESENT ILLNESS: This is a 23 year old female. She has had a rash on her arms. Started on hands and spread to forearms and lightly on the upper arms. Rash is itchy. Trial of benadryl cream has helped a little with itching, but not decreasing rash. Has tried to discover what has been causing the rash. No new soaps, detergents, lotions, medicines, supplements. Nothing that would be in contact with hands/arms. No sick contacts. Allergies: Coded Allergies: nickel (Verified Allergy, Mild, RASH, 03/17/19) fish derived (Verified Allergy, Unknown, 03/17/19) throat swelling Home Meds Active Scripts Prednisone (PREDNISONE) 20 Mg Tablet, 60 MG PO QDAY for 4 Days, #12 TAB 0 Refills Prov:THOMAS PARRY MD 03/17/19 Clotrimazole (Lotrimin AF) 1 % Cream..g., 1 YASMINE TP BID for 7 Days, #1 TUBE 0 Refills Prov:THOMAS PARRY MD 03/17/19 Bupropion Hcl (WELLBUTRIN SR) 150 Mg Tablet.er, 150 MG PO BID for Bipolar, #30 TAB 6 Refills Prov:AKILAH GILES 01/27/19 Butalb/Acetaminophen/Caff 50-325-40 Mg (FIORICET 50-325-40) 1 Each Tablet, 1-2 TAB PO Q4H for Headache, #30 TAB 0 Refills Prov:AKILAH GILES 01/27/19 Hydroxyzine Pamoate (HYDROXYZINE PAMOATE) 25 Mg Capsule, 25 MG PO BID PRN for ANXIETY, #20 CAPSULE 0 Refills TAKE ONE TABLET (25 MG) UP TO TWICE A DAY NEEDED FOR ANXIETY Prov:AKILAH GILES 01/27/19 Ondansetron Hcl (ZOFRAN) 4 Mg Tablet, 4 MG PO Q6H PRN for NAUSEA/VOMITING, #10 Prov:MIKE ZAPATA DO 01/25/19 Reported Medications Bupropion Hcl (WELLBUTRIN SR) 150 Mg Tablet.er, 150 MG PO BID, TAB 03/05/18 Reviewed Nurses Notes: Yes Hx Smoking: No Smoking Status: Never Smoker Exposure to Second Hand Smoke?: No Hx Substance Use Disorder: No Hx Alcohol Use: No Constitutional Vital Sign - Last 24 Hours 03/17/19 03/17/19 03/17/19 03/17/19 20:35 20:35 20:56 21:00 Temp 98.2 Pulse 99 98 109 Resp 12 B/P (MAP) 112/85 112/85 (94) 114/96 (102) Pulse Ox 96 95 88 O2 Delivery Room Air 03/17/19 03/17/19 03/17/19 21:00 21:30 22:00 Pulse 85 B/P (MAP) 114/96 (102) 114/70 (85) 109/65 (80) Pulse Ox 93 94 Physical Exam General Appearance: Alert, no distress. Eyes: Pupils equal and round no injection. ENT: Normal oral mucosa. Moist mucous membranes. No mucous membrane involvement. Neck: Neck is supple and non tender. Respiratory: Chest is non tender, lungs are clear to auscultation. Cardiac: regular rate and rhythm Gastrointestinal: Abdomen is soft and non tender, no masses, bowel sounds normal. Musculoskeletal: Non tender. Skin: Rash is raised macular lesions, some in a slight ring formation, some confluent mainly in the hands decreasing in size and severity as you go up the arms. Rare scattered lesions on the upper arms. These are nontender. They do fernanda. I don't see any associated scale. In the ring area, a few with slight vesicular activity. DIFFERENTIAL DIAGNOSIS: After history and physical exam differential diagnosis was considered for skin rash that looks like it could be a contact allergic dermatitis versus tinea Medical Decision Making Data Points Result Diagram: 03/17/19215403/[id number]/192154 Laboratory Hematology Test 03/17/19 21:55 White Blood Count 7.4 k/uL (4.5-11.0) Red Blood Count 4.20 M/uL (4.17-5.56) Hemoglobin 11.5 g/dL (12.0-16.0) L Hematocrit 34.3 % (34.0-47.0) Mean Corpuscular Volume 81.7 fL (80.0-96.0) Mean Corpuscular Hemoglobin 27.3 pg (26.0-33.0) Mean Corpuscular Hemoglobin Concent 33.5 g/dL (32.0-36.0) Red Cell Distribution Width 18.1 % (11.5-14.5) H Platelet Count 400 K/uL (150-450) Mean Platelet Volume 7.8 fL (7.2-11.1) Neutrophils (%) (Auto) 53.0 % (39.4-72.5) Lymphocytes (%) (Auto) 38.6 % (17.6-49.6) Monocytes (%) (Auto) 7.0 % (4.1-12.4) Eosinophils (%) (Auto) 1.1 % (0.4-6.7) Basophils (%) (Auto) 0.3 % (0.3-1.4) Nucleated RBC Relative Count (auto) 0.0 /100WBC Neutrophils # (Auto) 3.9 K/uL (2.0-7.4) Lymphocytes # (Auto) 2.9 K/uL (1.3-3.6) Monocytes # (Auto) 0.5 K/uL (0.3-1.0) Eosinophils # (Auto) 0.1 K/uL (0.0-0.5) Basophils # (Auto) 0.0 K/uL (0.0-0.1) Nucleated RBC Absolute Count (auto) 0.00 K/uL Peripheral Blood Smear No Y/N Erythrocyte Sedimentation Rate 34 mm/HOUR (0-20) H Chemistry Test 03/17/19 21:55 Sodium Level 138 mmol/L (137-145) Potassium Level 3.8 mmol/L (3.5-5.0) Chloride Level 105 mmol/L (98-107) Carbon Dioxide Level 23 mmol/L (22-31) Blood Urea Nitrogen 13 mg/dl (7-18) Creatinine 0.70 mg/dl (0.52-1.04) Glomerular Filtration Rate Calc > 60.0 Random Glucose 83 mg/dl (75-110) Calcium Level 9.2 mg/dl (8.4-10.2) Total Bilirubin 0.3 mg/dl (0.2-1.3) Aspartate Amino Transf (AST/SGOT) 28 U/L (0-35) Alanine Aminotransferase (ALT/SGPT) 45 U/L (0-56) Alkaline Phosphatase 152 U/L (0-126) C-Reactive Protein 0.6 mg/dl (<1.0) Total Protein 7.2 g/dl (6.3-8.2) Albumin 4.0 g/dl (3.5-5.0) Human Chorionic Gonadotropin, Qual Negative (NEGATIVE) Urinalysis Test 03/17/19 22:07 Urine Color Yellow Urine Clarity Slightly-cloudy Urine pH 5.0 pH (4.8-9.5) Urine Specific Sparks 1.024 Urine Protein Negative mg/dL (NEGATIVE) Urine Glucose (UA) Negative mg/dL (NEGATIVE) Urine Ketones Negative mg/dL (NEGATIVE) Urine Blood Negative (NEGATIVE) Urine Nitrite Negative (NEGATIVE) Urine Bilirubin Negative (NEGATIVE) Urine Urobilinogen Negative mg/dL (0.2-1.9) Urine Leukocyte Esterase Trace (NEGATIVE) Urine RBC 1 /HPF (0-2/HPF) Urine WBC 6 /HPF (0-5/HPF) Urine Squamous Epithelial Cells Many /LPF (</=FEW) Urine Bacteria Few /HPF (NONE-FEW) Urine Mucus Few /HPF (NONE-FEW) ED Course/Re-evaluation ED Course Labs unremarkable. The patient does have changes that suggest possible tinea. Could be an allergic or contact. Recommended trial of prednisone plus Chlortrimazole cream. Benadryl for itching. Follow up with dermatology recommend ed should this not clear or if it recurs. Decision to Disposition Date: Mar 17, 2019 Decision to Disposition Time: 22:34 Depart Departure Latest Vital Signs Vital Signs Date Time Temp Pulse Resp B/P (MAP) Pulse Ox O2 Delivery O2 Flow Rate FiO2 03/17/19 22:00 85 109/65 (80) 94 03/17/19 20:35 98.2 12 Room Air Impression: Primary Impression: Rash and nonspecific skin eruption Condition: Improved Disposition: HOME OR SELF-CARE Referrals: AKILAH GILES CNM (PCP) New Scripts Prednisone (PREDNISONE) 20 Mg Tablet 60 MG PO QDAY for 4 Days, #12 TAB 0 Refills Prov: THOMAS PARRY MD 03/17/19 Clotrimazole (Lotrimin AF) 1 % Cream..g. 1 YASMINE TP BID for 7 Days, #1 TUBE 0 Refills Prov: THOMAS PARRY MD 03/17/19 Patient Instructions: Acute Rash (ED) Additional Instructions: At this point we do not know what is causing the rash. We do not see signs of a dangerous problem. Most likely, this will be an allergic contact dermatitis, or could be a fungal infection of the skin. Take Prednisone 20mg tablets, 3 tablets once a day for 4 more days. Wash the affected skin twice a day with mild soap and water. Apply Clotrimazole twice a day after washing. Make a follow-up appointment with Dermatology if not improving or returning after treatment. THOMAS PARRY MD Mar 17, 2019 20:45
[2019-03-17 22:00] VITALS: BP 109/65
[2019-03-17 22:08] LABS: PLATELET COUNT, AUTOMATED 400 K/uL (150-450)
[2019-03-17] MEDS ORDERED: diphenhydrAMINE 25 MG CAP PO ONE (22:40)
[2019-03-17] MEDS ORDERED: predniSONE 20 MG TAB PO ONE (22:40)
[2019-03-17] MEDS ORDERED: PRED20TA6 PO (22:41)
[2019-03-17] MEDS ORDERED: CLOT12CR4 TP (22:41)
== END 2019-03-17 23:02 | disposition home or self-care (01) ==
LOC: ER 20:54
DX: R21 Rash and other nonspecific skin eruption (principal); F41.9 Anxiety disorder, unspecified; Z79.899 Other long term (current) drug therapy
CPT/HCPCS: 36415; 81001; 84703; 85025; 85651; 86140; 99283; J7512; Q0163; 82040; 82247; 82310; 82374; 82435; 82565; 82947; 84075; 84132; 84155; 84295; 84450; 84460; 84520